=== PATIENT | female | born 1960 | race Caucasian/White ===

== ENCOUNTER 2016-07-16 10:45 | Emergency (ER) | payer OTHER ==
[~2016-07-16] VITALS: Ht 157.5 cm; Wt 62.0 kg
[~2016-07-16 10:45] MED LIST: AMLO-145; DICY10CA60 PO; IBUP-725; ONDA4TAB8 PO
[2016-07-16 10:47] VITALS: Ht 157.5 cm; Wt 62.0 kg
[2016-07-16] MEDS ORDERED: HYDR-906 PO (11:15)
[2016-07-16] MEDS ORDERED: IBUP400T22 PO (11:15)
--- NOTE | 2016-07-16 11:24 | ERA ---
ER Documentation Chief Complaint Date/Time DATE: 07/16/16 TIME: 11:20 Chief Complaint RIGHT SHOULDER PAIN,FELL A MONTH AGO HPI Patient is a 52-year-old female presenting with a complaint of a torn shoulder and current shoulder pain. Administrative Personal Assistant is the Slingbox. Patient had an MRI of her right shoulder 2 days ago was diagnosed with a complete deltoid tear. Patient' s current pain is an 8-9 out of 10 and claims that she is having difficulty sleeping. Pt denies weight loss, fevers, nausea, vomiting, diarrhea, constipation, hyperhidrosis, rigors, fatigue, dyspnea, malaise or depression. ROS All systems reviewed and are negative except as per history of present illness. Medications Home Meds Active Scripts Hydrocodone/Acetaminophen ([place] 5-325 Tablet) 1 Each Tablet, 1 TAB PO Q6H Y for PAIN, #7 TAB Prov:NANCI STODDARD PA-C 07/16/16 Ibuprofen* (Motrin*) 400 Mg Tab, 400 MG PO Q6, #30 TAB Prov:NANCI STODDARD PA-C 07/16/16 Dicyclomine Hcl* (Bentyl*) 10 Mg Capsule, 10 MG PO QID for 3 Days, CAP Prov:JOCELIN MOLINA 05/16/15 Ondansetron Hcl* (Zofran*) 4 Mg Tablet, 4 MG PO Q6H for NAUSEA AND/OR VOMITING, #30 TAB Prov:JOCELIN MOLINA 05/16/15 Reported Medications Ibuprofen (Motrin) 400 Mg Tablet 08/12/12 Amlodipine Besylate* (Amlodipine Besylate*) 5 Mg Tablet 08/12/12 Allergies Allergies: Coded Allergies: Penicillins (Verified Allergy, Mild, RASH, 07/16/16) PMhx/Soc History of Surgery: Yes () Anesthesia Reaction: No Hx Neurological Disorder: No Hx Respiratory Disorders: No Hx Cardiac Disorders: Yes (htn) Hx Psychiatric Problems: No Hx Miscellaneous Medical Probl: No Hx Alcohol Use: No Hx Substance Use: No Hx Tobacco Use: No Smoking Status: Never smoker Physical Exam Vitals Vital Signs Date Time Temp Pulse Resp B/P Pulse Ox O2 Delivery O2 Flow Rate FiO2 07/16/16 10:47 98.5 61 18 117/57 98 Physical Exam Const: Overweight 56-year-old female Head: Atraumatic Eyes: Normal Conjunctiva ENT: Normal External Ears, Nose and Mouth. Neck: Full range of motion..~ No meningismus. Resp: Clear to auscultation bilaterally Cardio: Regular rate and rhythm, no murmurs Abd: Soft, non tender, non distended. Normal bowel sounds Skin: No petechiae or rashes Back: No midline or flank tenderness Ext: No cyanosis, or edema. Positive drop arm sign in the right shoulder. Limited and internal/external abduction abduction ranges of motion secondary to pain and weakness. Patient is neurovascularly intact bilaterally. Neur: Awake and alert Psych: Normal Mood and Affect Procedures/MDM Patient is presenting with a close tear diagnosed by MRI 2 days ago. Patient has not seen the PCP who originally referred her to a specialist. Have told the patient that we do not treat chronic pain here and to follow-up with PCP for further management. We will go ahead and give a short course of [place] and ibuprofen. Patient was told not to take his to medications at the same time but alternate. Patient's physical exam was consistent with a tear of the right deltoid muscle and general limited range of motion in all range of motion secondary to pain. Rest of physical exam was unremarkable. Departure Diagnosis: Primary Impression: Rotator cuff tear Qualified Code: M75.121 - Complete tear of right rotator cuff Condition: Stable Patient Instructions: Rotator Cuff Tear Additional Instructions: Follow-up with PCP who ordered MRI to figure out the next plan of action. If you have any questions regarding medications, ask your pharmacist or us before you leave. If any adverse reactions occur while taking your medications, discontinue the treatment and return to the emergency department immediately. Take your medications as directed, and complete the entire course of treatment. NANCI SOTDDARD PA-C Jul 16, 2016 11:24
== END 2016-07-16 11:29 | disposition home or self-care (01) ==
LOC: FTE 10:45
DX: M75.121 Complete rotator cuff tear or rupture of right shoulder, not specified as traumatic (principal); I10 Essential (primary) hypertension
CPT/HCPCS: 99283

== ENCOUNTER 2016-10-19 10:46 | Emergency (ER) | payer OTHER ==
[~2016-10-19] VITALS: Ht 157.5 cm; Wt 61.0 kg
[~2016-10-19 10:46] MED LIST changes: +HYDR-906 PO; +IBUP400T22 PO
[2016-10-19 10:48] VITALS: Ht 157.5 cm; Wt 61.0 kg
[2016-10-19] MEDS ORDERED: ACETAMINOPHEN 500 MG TAB PO STA (11:33)
--- NOTE | 2016-10-19 13:06 | RADRPT ---
PROCEDURE: CT brain without contrast CLINICAL INDICATION: Headache, left arm numbness TECHNIQUE: CT of the brain without contrast was performed on a multidetector CT scanner, with multi planar reformats. One or more of the following dose reduction techniques were used: Automated expos ure control, adjustment in mA and / or kV according to patient size, use of iterative reconstructive technique. CTDIvol = 45 mGy; DLP = 720 mGy-cm. COMPARISON: CT brain 08/08/2012 FINDINGS: No acute intracranial hemorrhage is identified. No extra-axial fluid collection is seen. There is no mass effect. No midline shift is identified. Ventricles and sulci are within normal limits for size and configuration. The density of the brain is unremarkable. Ortiz-white differentiation is preserved. There has been increase in patchy heterogeneity of the calvarium with areas of decreased attenuation and sclerosis; there may now be mild calvarial thickening. No destructive osseous changes are seen . Mastoid air cells and imaged paranasal sinuses grossly clear. IMPRESSION: 1. No evidence of acute intracranial pathology. 2. Increase in diffuse heterogeneity of the calvarium with lucency and sclerosis, and suggestion of interval mild calvarial thickening. Findings may reflect Paget disease, or possibly sequela of meta bolic disorder. Metastatic disease is not excluded. Correlate clinically. RPTAT: VV .Willie Valdez MD, MD Date Time Electronically viewed and signed by .Willie Valdez MD, on 10/19/2016 13:06 .O/
[2016-10-19 13:29] LABS: ADD SCAN DIFF NO
[2016-10-19 13:32] LABS: BASOPHILS % 0.1 % (0.0-2.0); EOSINOPHILS # 0.2 10^3/ul (0.0-0.5); EOSINOPHILS % 2.4 % (0.0-7.0); HEMATOCRIT 43.8 % (37.0-47.0); HEMOGLOBIN 14.3 g/dl (12.0-16.0); LYMPHOCYTES # 2.3 10^3/ul (0.8-2.9); LYMPHOCYTES % 32.1 % (15.0-51.0); MEAN CORPUSCULAR HEMOGLOBIN 28.3 pg (29.0-33.0); MEAN CORPUSCULAR HGB CONC 32.6 g/dl (32.0-37.0); MEAN CORPUSCULAR VOLUME 86.7 fl (82.0-101.0); MEAN PLATELET VOLUME 9.2 fl (7.4-10.4); MONOCYTE # 0.5 10^3/ul (0.3-0.9); MONOCYTES % 6.7 % (0.0-11.0); NEUTROPHIL # 4.2 10^3/ul (1.6-7.5); NEUTROPHILS % 58.6 % (39.0-77.0); PLATELET COUNT 371 10^3/UL (140-415); RED BLOOD COUNT 5.05 10^6/ul (4.20-5.40); RED CELL DISTRIBUTION WIDTH 12.5 % (11.5-14.5); WHITE BLOOD COUNT 7.2 10^3/ul (4.8-10.8)
[2016-10-19 13:51] LABS: ALBUMIN 4.5 g/dl (3.3-4.9); ALBUMIN/GLOBULIN RATIO 1.04; BILIRUBIN,INDIRECT 0.4 mg/dl (0-1.1); BILIRUBIN,TOTAL 0.4 mg/dl (0.2-1.3); CALCIUM 10.1 mg/dl (8.4-10.2); CREATININE 0.77 mg/dl (0.44-1.00); POTASSIUM 4.5 mmol/L (3.5-5.1); TOTAL PROTEIN 8.8 g/dl (6.1-8.1)
--- NOTE | 2016-10-19 13:53 | RADRPT ---
PROCEDURE: Chest x-ray CLINICAL INDICATION: Chest pain TECHNIQUE: Chest single view COMPARISON: None FINDINGS: The heart is normal in size. The pulmonary vessels are normal in caliber. The lungs are clear. Th e costophrenic angles are sharp. The visualized bony thorax is unremarkable. IMPRESSION: No acute cardiopulmonary disease. RPTAT: HH .Yury Berger MD, Date Time Electronically viewed and signed by .Yury Berger MD, MD on 10/19/2016 13:53 .W/
[2016-10-19] MEDS ORDERED: TRAM50TA2 PO (14:16)
[2016-10-19] MEDS ORDERED: IBUP-1542 PO (14:16)
--- NOTE | 2016-10-19 14:21 | ERD ---
ER Documentation Chief Complaint Date/Time DATE: 10/19/16 TIME: 14:18 Chief Complaint HEADACHE , LT ARM PAIN AND NUMBNESS X 1 DAY HPI This 56-year-old female presents with a 3 day history of left-sided headache, neck pain. The pain in her neck radiates to her left arm. She also has pain in her upper and lower back. She is wondering if it is due to stress at work. She denies any history of trauma, fevers, chest pain, shortness breath, additional symptoms. ROS All systems reviewed and are negative except as per history of present illness. Medications Home Meds Active Scripts Tramadol HCl (Tramadol HCl) 50 Mg Tablet, 50 MG PO Q4 Y for PAIN, #20 TAB Prov:BOO YOON MD 10/19/16 Ibuprofen* (Motrin*) 600 Mg Tab, 600 MG PO Q6, #20 TAB Prov:BOO YOON MD 10/19/16 Hydrocodone/Acetaminophen ([place] 5-325 Tablet) 1 Each Tablet, 1 TAB PO Q6H Y for PAIN, #7 TAB Prov:NANCI STODDARD PA-C 07/16/16 Ibuprofen* (Motrin*) 400 Mg Tab, 400 MG PO Q6, #30 TAB Prov:NANCI STODDARD PA-C 07/16/16 Dicyclomine Hcl* (Bentyl*) 10 Mg Capsule, 10 MG PO QID for 3 Days, CAP Prov:JOCELIN MOLINA 05/16/15 Ondansetron Hcl* (Zofran*) 4 Mg Tablet, 4 MG PO Q6H for NAUSEA AND/OR VOMITING, #30 TAB Prov:JOCELIN MOLINA 05/16/15 Reported Medications Ibuprofen (Motrin) 400 Mg Tablet 08/12/12 Amlodipine Besylate* (Amlodipine Besylate*) 5 Mg Tablet 08/12/12 Allergies Allergies: Coded Allergies: Penicillins (Verified Allergy, Mild, RASH, 10/19/16) PMhx/Soc History of Surgery: Yes () Anesthesia Reaction: No Hx Neurological Disorder: No Hx Respiratory Disorders: No Hx Cardiac Disorders: Yes (htn) Hx Psychiatric Problems: No Hx Miscellaneous Medical Probl: No Hx Alcohol Use: No Hx Substance Use: No Hx Tobacco Use: No Smoking Status: Never smoker Physical Exam Vitals Vital Signs Date Time Temp Pulse Resp B/P Pulse Ox O2 Delivery O2 Flow Rate FiO2 10/19/16 10:48 99.0 75 16 138/60 98 Physical Exam Const: [] Alert, [id number] per Head: Atraumatic. Mildly reproducible headache on the left zoroastrian. No pulsatile masses. Eyes: Normal Conjunctiva ENT: Normal External Ears, Nose and Mouth. Neck: Full range of motion..~ No meningismus.. Minimal tenderness in the cervical paraspinous muscles. Resp: Clear to auscultation bilaterally Cardio: Regular rate and rhythm, no murmurs Abd: Soft, non tender, non distended. Normal bowel sounds Skin: No petechiae or rashes Back: No midline or flank tenderness Ext: No cyanosis, or edema Neur: Awake and alert Psych: Normal Mood and Affect Result Diagram: 10/19/16 1319 10/19/16 1319 Results 24 hrs Laboratory Tests Test 10/19/16 13:19 White Blood Count 7.210^3/ul Red Blood Count 5.0510^6/ul Hemoglobin 14.3g/dl Hematocrit 43.8% Mean Corpuscular Volume 86.7fl Mean Corpuscular Hemoglobin 28.3pg Mean Corpuscular Hemoglobin Concent 32.6g/dl Red Cell Distribution Width 12.5% Platelet Count 76183^3/UL Mean Platelet Volume 9.2fl Neutrophils % 58.6% Lymphocytes % 32.1% Monocytes % 6.7% Eosinophils % 2.4% Basophils % 0.1% Nucleated Red Blood Cells % 0.0/100WBC Neutrophils # 4.210^3/ul Lymphocytes # 2.310^3/ul Monocytes # 0.510^3/ul Eosinophils # 0.210^3/ul Basophils # 0.010^3/ul Nucleated Red Blood Cells # 0.010^3/ul Sodium Level 143mmol/L Potassium Level 4.5mmol/L Chloride Level 103mmol/L Carbon Dioxide Level 28mmol/L Anion Gap 17 Blood Urea Nitrogen 21mg/dl Creatinine 0.77mg/dl Glucose Level 94mg/dl Calcium Level 10.1mg/dl Total Bilirubin 0.4mg/dl Direct Bilirubin 0.00mg/dl Indirect Bilirubin 0.4mg/dl Aspartate Amino Transf (AST/SGOT) 36IU/L Alanine Aminotransferase (ALT/SGPT) 43IU/L Alkaline Phosphatase 210IU/L Total Protein 8.8g/dl Albumin 4.5g/dl Globulin 4.30g/dl Albumin/Globulin Ratio 1.04 Current Medications Medications (Trade) Dose Ordered Sig/Emma Route PRN Reason Start Time Stop Time Status Last Admin Dose Admin Acetaminophen (Tylenol Tab) 500 mg ONCE STAT PO 10/19/16 11:33 10/19/16 11:34 DC 10/19/16 12:22 Procedures/MDM CT brain shows normal brain although there are some areas of sclerosis in the calvarium. Differential includes metastatic disease versus metabolic disorder. Chest X-ray 1V Interpreted by me: Soft Tissue: No acute abnormalities Bones: No acute abnormalities Mediastinum/Cardiac Silhouette/Lungs: [No acute abnormalities]. Impression- normal 1 view chest x-ray CBC is normal. CMP shows slightly elevated alkaline phosphatase. Patient presents with headache, neck pain back pain suggestive of muscular skeletal pain , tension headache, possibly mild cervical radicular symptoms. There is some areas of sclerosis on her CT of her skull and alkaline phosphatase suggest some unspecified metabolic disorder possibly. She is advised to follow-up with primary doctor for further evaluation management. Signs or symptoms do not suggest bleeding, mass-effect, tumor, meningitis, bacterial infection, neurologic deficit. Patient will be treated with tramadol and ibuprofen and primary care follow-up. The patient was stable with no new complaints during the ER course. Clinically, there is no current evidence to suggest meningitis, sepsis, acute abdomen, pneumonia, acute coronary syndrome, pulmonary embolism, or any other emergent condition appearing to require further evaluation or hospitalization. The patient should certainly return for any new or worsening symptoms per the aftercare instructions. They should otherwise follow-up with her primary care doctor for reevaluation this week. Departure Diagnosis: Primary Impression: Headache Headache type: unspecified Headache chronicity pattern: unspecified pattern Intractability: not intractable Qualified Code: R51 - Nonintractable headache, unspecified chronicity pattern, unspecified headache type Condition: Stable Patient Instructions: Headache, Unspecified Additional Instructions: cerebro normal. los huesos poquito abnormales. . Cheque otro vez con hartman doctor primario en el proximo [place] or regresa para mas o nueva simptomas. BOO YOON MD Oct 19, 2016 14:20
== END 2016-10-19 14:47 | disposition home or self-care (01) ==
LOC: FTE 10:46
DX: R51 Headache (principal); I10 Essential (primary) hypertension
CPT/HCPCS: 70450; 71010; 80053; 85025; Z7502; Z7610

== ENCOUNTER 2016-12-11 09:12 | Inpatient (IN) | payer OTHER ==
[~2016-12-11] VITALS: Ht 154.9 cm; Wt 62.0 kg
[~2016-12-11 09:12] MED LIST changes: +IBUP-1542 PO; +TRAM50TA2 PO
[2016-12-11] MEDS ORDERED: ONDANSETRON 4 MG INJ IV ONE (09:30)
[2016-12-11] MEDS ORDERED: morphine 2 MG INJ IV ONE (09:30)
[2016-12-11 09:58] LABS: BASOPHILS % 0.2 % (0.0-2.0); EOSINOPHILS # 0.1 10^3/ul (0.0-0.5); EOSINOPHILS % 2.7 % (0.0-7.0); HEMATOCRIT 42.8 % (37.0-47.0); LYMPHOCYTES % 37.3 % (15.0-51.0); MEAN CORPUSCULAR HEMOGLOBIN 27.8 pg (29.0-33.0); MEAN CORPUSCULAR HGB CONC 32.7 g/dl (32.0-37.0); MEAN CORPUSCULAR VOLUME 85.1 fl (82.0-101.0); MEAN PLATELET VOLUME 9.7 fl (7.4-10.4); MONOCYTE # 0.3 10^3/ul (0.3-0.9); MONOCYTES % 6.1 % (0.0-11.0); NEUTROPHILS % 52.6 % (39.0-77.0); PLATELET COUNT 302 10^3/UL (140-415); RED BLOOD COUNT 5.03 10^6/ul (4.20-5.40); RED CELL DISTRIBUTION WIDTH 13.1 % (11.5-14.5); WHITE BLOOD COUNT 5.3 10^3/ul (4.8-10.8)
[2016-12-11 10:10] LABS: CALCIUM 9.7 mg/dl (8.4-10.2); CREATININE 0.72 mg/dl (0.44-1.00); POTASSIUM 4.1 mmol/L (3.5-5.1)
--- NOTE | 2016-12-11 10:19 | RADRPT ---
PROCEDURE: CT Brain without contrast. CLINICAL INDICATION: Trauma TECHNIQUE: A CT of the brain was performed on a [employer] 64-slice CT scanner utilizing axial imaging from the skull base through the vertex without IV contrast. Multiplanar reformatted images were made. Images were reviewed on a PACS workstation. The CTDIvol is 44.6 mGy and the DLP is 630 mGycm. One or more of the following dose reduction techniques were used: Automated exposure control. Adjustment of the mA and/or kV according to patient size. Use of iterative reconstruction technique. COMPARISON: October 19, 2016 FINDINGS: There is no intracranial hemorrhage, mass effect, or midline shift. No extra-axial fluid collection is seen. The ventricles and sulci are normal in size and configuration. The density of the brain is normal, and the leal white matter differentiation appears well-preserved. As also seen on a prior examination, there is a heterogeneous increased sclerosis diffusely of the c alvarium. IMPRESSION: 1. No evidence of acute intracranial pathology. 2. As also seen on a prior exam, there is heterogeneous increased sclerosis diffusely of the calvar ium. Differential considerations continue to include pad disc disease though metastatic disease is n ot excluded. Consider radiographic bone survey when clinically appropriate for further evaluation. Physician Ambreen Date Time Electronically viewed and signed by Physician Ambreen on 12/11/2016 10:18 ML/
--- NOTE | 2016-12-11 10:26 | RADRPT ---
PROCEDURE: XR Chest. CLINICAL INDICATION: Chest pain following trauma TECHNIQUE: AP Portable chest. COMPARISON: 10/19/2016 chest X ray FINDINGS: The soft tissues and bones are remarkable for increased density noted within the left axilla which m ay represent calcifications or artifact. Thoracic spondylosis is present with bilateral acromioclavi cular osteoarthropathy. No focal infiltrates, masses, or effusions are noted. The mediastinum and heart are normal. No pneumothorax is present. IMPRESSION: 1. No radiographic evidence for acute cardiopulmonary disease 2. Thoracic spondylosis and mild degenerative changes of the bilateral acromioclavicular joints. RPTAT: HDC .Thania Escobedo MD, Date Time Electronically viewed and signed by .Thania Escobedo MD, MD on 12/11/2016 10:26 .C/
--- NOTE | 2016-12-11 10:26 | RADRPT ---
PROCEDURE: CT scan of the cervical spine without intravenous contrast. CLINICAL INDICATION: Neck pain TECHNIQUE: Routine CT scan of the cervical spine was performed without intravenous contrast on a h igh-resolution multi detector scanner. Vertebral level counting reference is made to the craniocervi any junction. Images and image data are available for procedural planning and localization purposes. One or more of the following dose reduction techniques were used: Automated exposure control; Adjus tment of the mA and/or kV according to patient size; Use of iterative reconstruction technique. CTDI = 22 mGy. DLP = 494 mGy-cm. COMPARISON: None. FINDINGS: Craniocervical junction: Within normal limits. Alignment: There is straightening of the cervical lordosis. Cervical vertebral bodies: Height is maintained. Mild degenerative endplate changes are present C6- C7. Evaluation of the individual levels demonstrates: C2-C3: Normal disk morphology without protrusion. Normal appearance of the facets. Central canal an d neural foramen are patent. C3-C4: Normal disk morphology without protrusion. Normal appearance of the facets. Central canal an d neural foramen are patent. C4-C5: Normal disk morphology without protrusion. Normal appearance of the facets. Central canal an d neural foramen are patent. C5-C6: Mild loss of disc height with 1 mm broad-based dorsal disc protrusion. Normal appearance of t he facets. Central canal and neural foramen are patent. C6-C7: Moderate loss of disc height with 1.5 mm broad-based dorsal disc protrusion. Normal appearanc e of the facets. Central canal and neural foramen are patent. C7-T1: Normal disk morphology without protrusion. Normal appearance of the facets. Central canal an d neural foramen are patent. Paraspinous musculature: Within normal limits. Visualized cervical soft tissues: Nodular opacities in the visualized lung apices likely representi ng postinflammatory scarring/fibrosis. IMPRESSION: No evidence of cervical vertebral body fracture, subluxation, or prevertebral soft tissue swelling. Minimal degenerative changes of the lower cervical spine without central canal or neural foraminal s tenosis. RPTAT: AADD .Mamadou Morel MD, MD Date Time Electronically viewed and signed by .Mamadou Morel MD, on 12/11/2016 10:26 .Jareth
--- NOTE | 2016-12-11 10:37 | RADRPT ---
PROCEDURE: CT Pelvis without Contrast CLINICAL INDICATION: Fall TECHNIQUE: Transaxial images were obtained through the pelvis on a multi-slice scanner without the intravenous contrast administration. no oral contrast had previously been given. Sagittal and bita nal re-formations were subsequently reconstructed. One or more of the following dose reduction techniques were used: - Automated exposure control. - Adjustment of the mA and/or kV according to patient size. - Use of iterative reconstruction technique. Radiation dose: CTDIvol = 7.82 mGy; DLP = 240.38 mGy-cm. COMPARISON: Comparison previous CT scan of the abdomen and pelvis done 05/16/2015 FINDINGS: Osseous structures: Appear intact with no fracture or destructive process identified. Hip joints: Mild degenerative changes seen about each hip. No joint effusion is identified. Sacroiliac joints: Appear unremarkable with no significant sclerosis or erosion identified. Extraperitoneal soft tissues: Appear unremarkable. Bladder: The bladder appears unremarkable. Reproductive organs: The uterus deviates slightly to the left of midline. Multiple phleboliths are s een in the pelvis but there is no adnexal mass. Visualized bowel: Appears unremarkable. Peritoneum: No free intraperitoneal fluid or air is identified. Vessels: Normal in caliber with no aneurysmal dilatation. Lymph nodes: No pathologically enlarged nodes are identified. IMPRESSION: 1. No fracture or dislocation is identified. 2. Very mild degenerative changes are seen about the hips. 3. Phleboliths are seen in the pelvis. Physician Maggie Date Time Electronically viewed and signed by Physician Maggie on 12/11/2016 10:37 /
--- NOTE | 2016-12-11 10:44 | RADRPT ---
PROCEDURE: CT L-Spine. CLINICAL INDICATION: Pain following trauma TECHNIQUE: A CT of the lumbar spine was performed on a [employer] 64-slice CT scanner utilizing high-resolution thin section axial images from the thoracic lumbar junction through the lumbar sacr al junction. Sagittal and coronal and multiplanar reformatted images were made. The CTDIvol is 29.2 7 mGy and the DLP is 908 mGycm. One of the following 3 does reduction techniques were used during this CT examination: 1) Automated exposure control 2) Adjustment of the mA +/- kV according to patient size or 3) Use of iterative reconstruction technique COMPARISON: CT abdomen pelvis dated 05/16/2015 without prior dedicated lumbar spine imaging FINDINGS: The visualized spine alignment demonstrates normal lumbar lordosis. An acute, L1 vertebral body burs t fracture is present with approximately 40% vertebral body height loss. Involvement of the posterio r L1 vertebral body cortex is noted with retropulsion into the spinal canal of 3 mm. This results in a mild central canal stenosis. The remainder the vertebral body heights are normal. The interverteb ral disc spaces demonstrate mild disc space height loss at the L5-S1 level. The posterior elements a re intact and well aligned. The bilateral paravertebral soft tissues imaged are normal. The imaged p ortions of the bilateral sacroiliac joints and the pelvis are normal. The specific axial levels are as follows: T10-11: The intervertebral disc is normal. The central canal, bilateral subarticular recesses and n eural foramen are patent. T11-12: The intervertebral discs is normal. The central canal, subarticular recess and neural ciarra en are patent. T12-L1: The intervertebral discs is normal. The central canal, subarticular recess and neural ciarra en are patent. A mild 3 mm annular bulge is present with mild ventral impression on the thecal sac. Again noted is the acute, burst fracture at L1 with approximately 3-4 mm retropulsion of the posteri or fragment. AP canal dimension at the mid vertebral level is 9 mm. This results in a mild central c anal stenosis and bilateral subarticular recess stenosis. L1-2: At the L1-2 this level the intervertebral disc height is normal. A mild 3 mm broad-based bulge is present. The central canal , bilateral subarticular recesses, and bilateral neural foramen demon strate mild stenosis. L2-3: The intervertebral disc is normal in height. At 3 mm mild broad-based bulge is present. Bilate ral facet arthropathy and ligamentum hypertrophy is present. AP canal dimension is 10 mm. This resul ts in mild central canal stenosis without subarticular recess or neural foraminal stenosis. L3-4: The intervertebral discs is normal. A mild 3 mm broad-based bulge is present. AP canal dimensi on is 9.9 mm. Mild bilateral facet arthropathy and ligamentum hypertrophy is present. Above findings contribute to mild central canal stenosis, bilateral subarticular recess stenosis and mild bilatera l neural foraminal stenosis. L4-5: The intervertebral disc is normal height. A 4 mm broad-based bulge is present. Bilateral facet arthropathy and ligamentum hypertrophy is present. AP canal dimension is 7.7 mm. This results in a moderate central canal stenosis, bilateral subarticular recess stenosis and mild bilateral neural fo raminal stenosis. L5-1: Mild disc space height loss is noted with the appearance of transitional anatomy at this level . The central canal, bilateral subarticular recesses and neural foramen are patent. Mild bilateral f acet arthropathy is present. IMPRESSION: 1. Acute L1 vertebral body burst fracture with approximately 40% vertebral body height loss and a m ild retropulsion into the spinal canal resulting in mild central canal stenosis. 2. Transitional anatomy with mild disc space height loss at L5-S1. 3. Multilevel broad-based bulges at the L1-2 through L4-5 levels with moderate central canal stenos is at L4-5 and mild stenosis at L1-2 through L3-4 levels. 4. Multilevel neural foraminal stenosis at the L1-2, L3-4 and L4-5 levels. 5. Multilevel facet and ligamentum hypertrophy as indicated above. A call report was made to Juan C Young at 12/11/2016 10:35:17 AM following the completion of th e examination by the undersigned. RPTAT: HDC .Thania Escobedo MD, Date Time Electronically viewed and signed by .Thania Escobedo MD, on 12/11/2016 10:44 .C/
[2016-12-11] MEDS ORDERED: LOSA25TA5 PO (10:52)
[2016-12-11] MEDS ORDERED: AMLO5TAB4 PO (10:52)
[2016-12-11] MEDS ORDERED: ASPI81TA3 PO (10:52)
--- NOTE | 2016-12-11 11:39 | RADRPT ---
PROCEDURE: Right wrist series CLINICAL INDICATION: Pain status post trauma TECHNIQUE: AP , lateral, oblique and ulnar deviation views of the right wrist COMPARISON: None available FINDINGS: Subtle deformity and lucency is noted at the waist of the right scaphoid. Recommend additional imagi ng such as CT or MRI to further evaluate for a nondisplaced fracture. Mild soft tissue swelling is p resent along the right radiocarpal articulation. No radiodense foreign bodies are present. Normal mi neralization and joint spaces are present. IMPRESSION: 1. Subtle lucency and deformity of the waist of the right scaphoid. Recommend additional imaging hartman ch as CT or MR to further evaluate for a closed, nondisplaced fracture. 2. Mild soft tissue swelling along the right radiocarpal articulation. RPTAT: HDC .Thania Escobedo MD, Date Time Electronically viewed and signed by .Thania Escobedo MD, on 12/11/2016 11:38 .C/
--- NOTE | 2016-12-11 11:58 | RADRPT ---
PROCEDURE: CT thoracic spine CLINICAL INDICATION: Pain status post trauma TECHNIQUE: A CT of the thoracic spine was performed on a GE 64-slice CT scanner utilizing high-res olution axial imaging from the cervical thoracic junction through the thoracolumbar junction. Sagit michelle, coronal, and multiplanar reformatted images were made. The CTDIvol is 14.69 mGy and the DLP is 501.11 mGycm. One of the following 3 does reduction techniques were used during this CT examination: 1) Automated exposure control 2) Adjustment of the mA +/- kV according to patient size or 3) Use of iterative reconstruction technique COMPARISON: Lumbar spine CT on same date FINDINGS: Visualized spine alignment demonstrates mild thoracic kyphosis. Again noted is the L1 vertebral body burst fracture with approximately 40% vertebral body height loss and mild retropulsion into the spi nal canal. The appearance of a chronic compression fracture deformity of C7 is noted with approximat carmen 30% vertebral body height loss. No retropulsion into the spinal canal is noted. The remainder of the vertebral body heights are normal. Degenerative spondylosis/enthesopathy is present throughout the thoracic spine. Sclerotic densities are noted in the vertebral bodies at the T5, left T8, left T 9, and right T11 and T12 vertebral bodies. Consider MR to further evaluate as sclerotic metastasis o r other osteoblastic etiologies are considerations. The visualized posterior elements are intact and well aligned. The bilateral paravertebral soft tiss ues demonstrate subsegmental bibasilar discoid atelectasis. Mild vascular calcifications are present . At all axial levels imaged, no focal disc extrusions, central canal, subarticular recess or neural foraminal stenosis is present within the thoracic spine. At the L1-2 level, again noted is mild ret ropulsion of the spinal canal with mild central canal stenosis, bilateral subarticular recess stenos is and mild bilateral neural foraminal stenosis. IMPRESSION: 1. Mild thoracic kyphosis without evidence for acute thoracic fractures. 2. L1 vertebral body burst fracture with mild retropulsion into the spinal canal and associated mil d stenosis as indicated. 3. Chronic appearing compression fracture of the C7 vertebral body with approximately 30% vertebral body height loss and no retropulsion of the spinal canal. 4. Multiple sclerotic lesions noted diffusely in the thoracic spine and recommend MRI to further ev aluate for underlying pathology or potential osteoblastic metastasis or other etiologies. RPTAT: HDC .Thania Escobedo MD, MD Date Time Electronically viewed and signed by .Thania Escobedo MD, MD on 12/11/2016 11:57 .C/
[2016-12-11 12:25] LABS: ADD UMIC YES; UR ASCORBIC ACID NEGATIVE (NEGATIVE); UR BILIRUBIN (Dip) NEGATIVE (NEGATIVE); UR BLOOD (Dip) 2+ mg/dL (NEGATIVE); UR CLARITY CLEAR (CLEAR); UR COLOR YELLOW (YELLOW); UR GLUCOSE (Dip) NEGATIVE (NEGATIVE); UR KETONES (Dip) NEGATIVE (NEGATIVE); UR LEUKOCYTE ESTERASE (Dip) NEGATIVE Leu/ul (NEGATIVE); UR NITRITE (Dip) NEGATIVE (NEGATIVE); UR RBC 5 /HPF (0-5); UR TOTAL PROTEIN (Dip) NEGATIVE (NEGATIVE); UR UROBILINOGEN (Dip) NEGATIVE (NEGATIVE)
[2016-12-11] MEDS ORDERED: morphine 4 MG/ML VIAL IV STA (13:13)
[2016-12-11] MEDS ORDERED: ACETAMINOPHEN 325 MG TAB PO PRN ×2 (13:30→18:30)
[2016-12-11] MEDS ORDERED: ONDANSETRON 4 MG INJ IV PRN (13:30)
--- NOTE | 2016-12-11 14:04 | ERA ---
ER Documentation Chief Complaint Date/Time DATE: 12/11/16 TIME: 09:30 Chief Complaint BIB [facility] FOR BACK PAIN FELL DOWN FLIGHT OF STEPS. AMBULATORY. CSPINE BY EMS HPI 56-year-old female history of hypertension presents to the ED via rescue ambulance complaining of severe low back pain after a fall down stairs just prior to arrival. Patient initially said she slipped on her back down the stairs but then thinks she fell forward head over heels. Complains of mild headache and neck pain and was placed in cervical spine immobilization at the scene. No chest pain or abdominal pain. Denies shortness of breath or palpitations. Severe, sharp, lower back pain exacerbated by any movement. No radicular symptoms, weakness or numbness. Mild right wrist pain. ROS All systems reviewed and are negative except as per history of present illness. Medications Home Meds Reported Medications Losartan Potassium* (Losartan Potassium*) 25 Mg Tablet, 25 MG PO DAILY, TAB 12/11/16 Aspirin* (Aspirin* Chew) 81 Mg Tab.chew, 81 MG PO DAILY, TAB.CHEW 12/11/16 Amlodipine Besylate* (Norvasc*) 5 Mg Tablet, 5 MG PO DAILY, TAB 12/11/16 Discontinued Reported Medications Ibuprofen (Motrin) 400 Mg Tablet 08/12/12 Amlodipine Besylate* (Amlodipine Besylate*) 5 Mg Tablet 08/12/12 Discontinued Scripts Tramadol HCl (Tramadol HCl) 50 Mg Tablet, 50 MG PO Q4 Y for PAIN, #20 TAB Prov:BOO YOON MD 10/19/16 Ibuprofen* (Motrin*) 600 Mg Tab, 600 MG PO Q6, #20 TAB Prov:BOO YOON MD 10/19/16 Hydrocodone/Acetaminophen (Moran 5-325 Tablet) 1 Each Tablet, 1 TAB PO Q6H Y for PAIN, #7 TAB Prov:NANCI STODDARD PA-C 07/16/16 Ibuprofen* (Motrin*) 400 Mg Tab, 400 MG PO Q6, #30 TAB Prov:NANCI STODDARD PA-C 07/16/16 Dicyclomine Hcl* (Bentyl*) 10 Mg Capsule, 10 MG PO QID for 3 Days, CAP Prov:JOCELIN MOLINA 05/16/15 Ondansetron Hcl* (Zofran*) 4 Mg Tablet, 4 MG PO Q6H for NAUSEA AND/OR VOMITING, #30 TAB Prov:JOCELIN MOLINA 05/16/15 Allergies Allergies: Coded Allergies: Penicillins (Verified Allergy, Mild, RASH, 12/11/16) PMhx/Soc Reviewed in chart. As per HPI. History of Surgery: Yes () Anesthesia Reaction: No Hx Neurological Disorder: No Hx Respiratory Disorders: No Hx Cardiac Disorders: Yes (htn) Hx Psychiatric Problems: No Hx Miscellaneous Medical Probl: No Hx Alcohol Use: No Hx Substance Use: No Hx Tobacco Use: No Smoking Status: Never smoker FmHx Not relevant to presenting complaint. Aunts with aunt: Pancreatic CA. Physical Exam Vitals Vital Signs Date Time Temp Pulse Resp B/P Pulse Ox O2 Delivery O2 Flow Rate FiO2 12/11/16 11:18 59 18 122/64 12/11/16 09:14 98.1 56 18 148/77 100 Physical Exam Const: Alert and oriented in severe distress due to pain Head: Atraumatic Eyes: Normal Conjunctiva ENT: Normal External Ears, Nose and Mouth. Neck: Cervical collar in place. Removed and there is mild posterior tenderness. No midline bony tenderness or paraspinal muscle spasm Resp: Clear to auscultation bilaterally. No rib tenderness or crepitus. Cardio: Regular rate and rhythm, no murmurs Abd: Soft, non tender, non distended. Normal bowel sounds Skin: No petechiae or rashes Back: Upper lumbar midline tenderness with paraspinal muscle spasm. No thoracic spinal tenderness. Ext: No cyanosis, or edema. Pulses 4+ in all extremities. Neur: Awake and alert. Motor and sensory equal bilaterally in all 4 extremities. Psych: Anxious but not depressed. Result Diagram: 12/11/1693912/11/16939 Results 24 hrs Laboratory Tests Test 12/11/16 09:40 12/11/16 12:00 White Blood Count 5.310^3/ul Red Blood Count 5.0310^6/ul Hemoglobin 14.0g/dl Hematocrit 42.8% Mean Corpuscular Volume 85.1fl Mean Corpuscular Hemoglobin 27.8pg Mean Corpuscular Hemoglobin Concent 32.7g/dl Red Cell Distribution Width 13.1% Platelet Count 42207^3/UL Mean Platelet Volume 9.7fl Neutrophils % 52.6% Lymphocytes % 37.3% Monocytes % 6.1% Eosinophils % 2.7% Basophils % 0.2% Nucleated Red Blood Cells % 0.0/100WBC Neutrophils # (Manual) 2.810^3/ul Lymphocytes # 2.010^3/ul Monocytes # 0.310^3/ul Eosinophils # 0.110^3/ul Basophils # 0.010^3/ul Nucleated Red Blood Cells # 0.010^3/ul Sodium Level 142mmol/L Potassium Level 4.1mmol/L Chloride Level 105mmol/L Carbon Dioxide Level 29mmol/L Anion Gap 12 Blood Urea Nitrogen 14mg/dl Creatinine 0.72mg/dl Glucose Level 103mg/dl Calcium Level 9.7mg/dl Urine Color YELLOW Urine Clarity CLEAR Urine pH 8.0 Urine Specific Hudson 1.010 Urine Ketones NEGATIVEmg/dL Urine Nitrite NEGATIVEmg/dL Urine Bilirubin NEGATIVEmg/dL Urine Urobilinogen NEGATIVEmg/dL Urine Leukocyte Esterase NEGATIVELeu/ul Urine Microscopic RBC 5/HPF Urine Microscopic WBC 1/HPF Urine Hemoglobin 2+mg/dL Urine Glucose NEGATIVEmg/dL Urine Total Protein NEGATIVEmg/dl Current Medications Medications (Trade) Dose Ordered Sig/Emma Route PRN Reason Start Time Stop Time Status Last Admin Dose Admin Morphine Sulfate (morphine) 4 mg ONCE ONCE IV 12/11/16 09:30 12/11/16 09:34 DC 12/11/16 09:41 Ondansetron HCl (Zofran Inj) 4 mg ONCE ONCE IV 12/11/16 09:30 12/11/16 09:34 DC 12/11/16 09:40 Morphine Sulfate (morphine) 4 mg ONCE STAT IV 12/11/16 13:13 12/11/16 13:15 DC 12/11/16 13:18 Procedures/MDM DOCUMENTS REVIEWED: ED nurse[, EMS, adjunct faculty for medical terminology care, Prior ED, Prior records, Dialysis, Clinic notes, Physician referral] MEDICAL DECISION MAKIN-year-old female history of hypertension presents to the ED via rescue ambulance complaining of severe low back pain after a fall down stairs just prior to arrival. Head injury below no soft consciousness and CT of the brain is unremarkable for traumatic injury. No neurologic deficit. No cervical spine fracture. CT of the lumbar spine reveals an L1 burst fracture. Neurosurgery consulted and MRI is ordered. No signs of intrathoracic or intra-abdominal injury. Morphine 4mg IV X 2. Patient be admitted to telemetry for further evaluation and management. Counseled patient and family regarding diagnosis, diagnostic results and plan for admission. CALLS/CONSULTS: Time 12:50, Dr. Pappas, Recommends MRI of the spine and admission. CALLS/CONSULTS: Time: 13:00, Dr Elizondo PATIENT CARE TRANSITIONED: Time: 13:00, Dr. Elizondo. CRITICAL CARE TIME: Due to the high probability of sudden clinically significant neurologic deterioration, this patient with Unstable, L1 burst fracture required multiple, frequent reevaluations of vital sign and neurologic status. Additional critical care time was spent in obtaining supplemental history from family and EMS, consultation with Neurosurgery and arranging for ongoing care with the admitting physician. TOTAL CRITICAL CARE TIME: 40 minutes not including other separately reportable procedures. Departure Diagnosis: Primary Impression: Fall at home Qualified Code: W19.XXXA - Fall in home, initial encounter Additional Impressions: Severe low back pain Unstable burst fracture of first lumbar vertebra Qualified Code: S32.012A - Closed unstable burst fracture of first lumbar vertebra, initial encounter Head injury, acute, without loss of consciousness Qualified Code: S09.90XA - Acute head injury without loss of consciousness, initial encounter Condition: Serious ADELE RAMOS MD Dec 11, 2016 14:04 TOTAL CRITICAL CARE TIME: 40 minutes not including other separately reportable procedures. Departure Diagnosis: Primary Impression: Fall at home Qualified Code: W19.XXXA - Fall in home, initial encounter Additional Impressions: Severe low back pain Unstable burst fracture of first lumbar vertebra Qualified Code: S32.012A - Closed unstable burst fracture of first lumbar vertebra, initial encounter Head injury, acute, without loss of consciousness Qualified Code: S09.90XA - Acute head injury without loss of consciousness, initial encounter Condition: ADELE Morejon MD Dec 11, 2016 14:04
--- NOTE | 2016-12-11 14:26 | RADRPT ---
PROCEDURE: MRI thoracic spine without contrast CLINICAL INDICATION: Follow up L1 burst fracture TECHNIQUE: An MRI of the thoracic spine was performed on a hi-definition high-resolution 3.0 Julia MR scanner utilizing the following sequences: Sagittal and axial T1 weighted, sagittal and axial T2 weighted, sagittal T2 fat saturation, and sagittal STIR. COMPARISON: CT thoracic spine 12/11/2016 FINDINGS: There is a normal kyphosis of the thoracic spine. Again noted is the acute L1 vertebral body burst f racture with approximate height loss of 40% and mild retropulsion into the spinal canal. Associated mild central canal stenosis is present at this level with approximately 4 mm of retro pulsion. The s clerotic densities previously described on CT are hypointense on T1, T2, T2 fat saturation and T2 ST IR sequences and represent nonspecific sclerotic foci. Chronic appearing C7 vertebral body compressi on fracture is again noted with approximately 30% vertebral body height loss. The remainder of the v ertebral bodies are normal in height and signal. The visualized posterior elements are intact and we ll aligned. The visualized thoracic cord is normal with a normal conus termination at T12-L1. The i ntervertebral discs are all normal in appearance with no significant disk bulge or protrusion. The central canal, subarticular recess and neural foramen are patent at all levels with the exception of mild central canal, subarticular recess and neural foraminal stenosis at L1-2. The paraspinal so ft tissues are normal. IMPRESSION: 1. Acute L1 vertebral body burst fracture with approximately 40% vertebral body height loss, mild r etropulsion of the spinal canal resulting in mild central canal stenosis. 2. No evidence for acute thoracic vertebral body compression fractures. 3. Chronic C7 vertebral body compression fracture with approximately 30% vertebral body height loss . 4. Previously-described sclerotic foci in the T5, T8, T9-T11 and T12 vertebral bodies are hypointen se on multiple sequences and represent nonspecific sclerotic foci. 5. No evidence for cord compression. RPTAT: HDC .Thania Escobedo MD, Date Time Electronically viewed and signed by .Thania Escobedo MD, on 12/11/2016 14:26 .C/
--- NOTE | 2016-12-11 14:32 | RADRPT ---
PROCEDURE: MRI lumbar spine without contrast. CLINICAL INDICATION: Back pain. TECHNIQUE: Routine MRI of the lumbar spine performed without intravenous contrast. Vertebral level counting reference is made to the lumbosacral junction with the last intervertebral disk spaces herman ng labeled as L5/S1. Images and image data are available for procedural planning and localization pu rposes. COMPARISON: CT lumbar spine 12/11/2016 FINDINGS: Alignment: There is preservation of the lumbar lordosis . Vertebrae: Acute burst fracture of the L1 vertebral body is present with 40% loss vertebral body he ight with 2 mm retropulsion of the superior portion of the dorsal wall. This results in minimal cent ral canal stenosis with AP diameter of the thecal sac measuring 10 mm. No evidence of epidural hemat gt. Vertebral body signal intensity throughout the remainder of the lumbar spine is otherwise withi n normal limits. A small hemangioma noted at the L3 level. No significant endplate signal changes ar e seen. Discs: Disc hydration is maintained throughout the lumbar spine. Small circumferential dorsal annul ar fissure/tear present L4-L5. Spinal cord: The conus medullaris is visible at the L1 level, and is normal in appearance. Examination of the individual levels demonstrates: L1-L2: Normal configuration of the disk without significant protrusion. Facets appear normal bilat erally without ligamentum hypertrophy or buckling. Central canal, lateral recesses, and neural for amen are patent. L2-L3: Normal configuration of the disk without significant protrusion. Facets appear normal bilat erally without ligamentum hypertrophy or buckling. Central canal, lateral recesses, and neural for amen are patent. L3-L4: Mild loss of disc height with 1 mm focal bilateral foraminal disc protrusions. Facets appear normal bilaterally without ligamentum hypertrophy or buckling. Central canal, lateral recesses, and neural foramen are patent. L4-L5: Minimal loss of disc height with asymmetric diffuse disc bulge measuring 1 mm centrally and 2 mm in the bilateral foraminal regions. Minimal bilateral facet arthropathy with mild ligamentum hy pertrophy. Central canal, lateral recesses, and neural foramen are patent. L5-S1: Developmentally mildly small disc without focal protrusion. Facets appear normal bilaterally without ligamentum hypertrophy or buckling. Central canal is mildly developmentally small in calibe r with AP diameter of the thecal sac measuring 7.2 mm. Lateral recesses are patent. Both neural fora men are patent. Paraspinous musculature: Normal signal characteristics without evidence of edema. Visualized abdomen: Within normal limits. IMPRESSION: Acute burst fracture of the L1 vertebral body is present with 40% loss vertebral body height with 2 mm retropulsion of the superior portion of the dorsal wall. This results in minimal central canal st enosis with AP diameter of the thecal sac measuring 10 mm. No evidence of epidural hematoma. Elsewhere mild degenerative changes of the lumbar spine without central canal or neural foraminal st enosis. RPTAT: AADD .Mamadou oMrel MD, MD Date Time Electronically viewed and signed by .Mamadou Morel MD, MD on 12/11/2016 14:32 .B/
--- NOTE | 2016-12-11 15:18 | RADRPT ---
PROCEDURE: MRI Brain without and with contrast. CLINICAL INDICATION: Sclerotic skull lesions. TECHNIQUE: An MRI of the brain was performed utilizing the following sequences: Sagittal T1-weigh aggie, axial T2-weighted, axial FLAIR, axial T1, coronal GRE axial diffusion-weighted with ADC mapping . Following the uneventful administration of 10 cc Magnevist, postcontrast axial and coronal T1-weig hted images were obtained. Images were viewed on a PACS workstation. COMPARISON: Multiple prior brain CTs the most recent dated 12/11/2016. FINDINGS: No diffusion weighted abnormalities are seen to suggest the presence of acute ischemia or recent inf arct. There is no intracranial hemorrhage, mass effect, or midline shift. No extra-axial fluid col lection is seen. The ventricles and sulci are mildly enlarged indicative of volume loss. There are mild scattered foci of T2 and FLAIR hyperintensity in the white matter, which are nonspeci fic in etiology but likely reflect chronic small vessel ischemic changes. The gradient echo images reveal no areas of susceptibility artifact to suggest blood degradation products or abnormal calcifi cation. There is heterogeneous skull bone marrow signal intensity with mild probable calvarial thickening an d areas of decreased T1 signal intensity and heterogeneous faint enhancement. Otherwise no abnormal intraparenchymal, meningeal or ependymal enhancement is seen. No abnormal intracranial vascular flow voids are noted. The pituitary and sella reveal no abnormali ty. The suprasellar cistern is clear. The visualized paranasal sinuses demonstrate mild scattered m ucosal thickening mainly in ethmoid air cells. The mastoid air cells are clear. IMPRESSION: 1. No acute intracranial hemorrhage, infarction or mass. No intracranial enhancing abnormality. 2. Mild chronic small vessel ischemic changes. 3. Mild generalized cerebral volume loss. 4. Heterogeneous skull bone marrow signal intensity with areas of decreased T1 signal intensity and heterogeneous faint enhancement. Differential consideration includes Paget disease or metabolic dis order. Metastatic disease is a less likely consideration. Consider bone scan as clinically warranted . RPTAT: HFN .Kay West MD, MD Date Time Electronically viewed and signed by .Kay West MD, MD on 12/11/2016 15:18 .N/
[2016-12-11 17:40] VITALS: PULSE 62
[2016-12-11 17:57] VITALS: BP 130/68; PULSE 67; RESP 18
[2016-12-11] MEDS ORDERED: DOCUSATE SODIUM 100 MG CAP PO PRN (18:30)
[2016-12-11] MEDS ORDERED: BISACODYL (EC) 5 MG TAB PO PRN (18:30)
[2016-12-11] MEDS ORDERED: NACL 0.9% 3 ML SYG IV SCH (18:30)
[2016-12-11] MEDS: HYDROCODONE/APAP (5/325) TAB PO PRN (18:39)
--- NOTE | 2016-12-11 18:41 | CONS ---
Date/Time of Note Date/Time of Note DATE: 12/11/16 TIME: 17:00 Assessment/Plan Assessment/Plan Additional Assessment/Plan Date of consultation: December 11, 2016 Requesting physician: Dr. Young with the emergency department Consulting service: Neurosurgery This is a 56-year-old female with past medical history significant for hypertension will apparently had a fall while walking down the stairs. The patient denies loss of consciousness. She presented to the emergency department after she developed severe low back pain.. The patient denies weakness or numbness of her upper or lower extremities. She does complain of right wrist pain that she attributes to her fall. She denies bowel or bladder dysfunction. The patient denies any prior falls. Neurosurgery was consulted after the patient was found to have a lumbar fracture. Past medical history: Hypertension Past surgical history: section Allergies: Penicillin Medications: The patient's medications are noted in the chart and reviewed Family history noncontributory Social history: The patient denies use of tobacco, alcohol, illicit or recreational drugs. Review of systems: The patient denies chest pain, shortness of breath, fever, heartburn. Physical examination: The patient is seen at bedside in the emergency department. She appears to be in some distress that she attributes to her low back pain and right wrist pain. She is awake, alert, oriented 4. Her language is fluent. Face is symmetric. Tongue is midline. Extraocular movements are grossly intact. Muscle bulk and tone is normal bilateral upper and lower extremities. Motor strength is 5 minus out of 5 bilateral upper extremities and at least 4 out of 5 bilateral lower extremities but it is somewhat limited secondary to low back pain as any movement of her lower extremities exacerbates her low back pain. Deep tendon reflexes are 1+ bilateral upper and lower extremities. Sensation to light touch is grossly normal bilateral upper and lower extremities. There is no perineal anesthesia. Rectal examination has been deferred per patient request. Gait Testing has been deferred as the patient is having severe low back pain. The patient has severe thoracolumbar tenderness at midline and over the paraspinal regions. Imaging: The patient has received a CT of the cervical, thoracic and lumbar spine as well as MRI of the brain, thoracic and lumbar spine without contrast. The imaging studies show an acute burst burst fracture of the L1 vertebrae with some mild retropulsion into the canal causing only mild spinal stenosis. The facet complexes and the ligaments appear to be intact grossly on the MR imaging studies. The patient does have some sclerotic lesions within the vertebrae in the thoracic spine but there are no other fractures noted. The radiologist has noted a lower cervical vertebral body chronic compression fracture that is questionable based on my review. The MRI and the CT of the head did not show any intracranial mass lesions, midline shift or evidence of hydrocephalus. However there are some Moth eaten like lesions that could be possibly related to Paget's disease. Assessment/plan: The patient's L1 burst fracture appears to be grossly stable without significant spinal stenosis. There is no acute neurosurgical intervention indicated unless the patient develops sensorimotor changes. The patient will need to be fitted for a TLSO brace that she would need to wear when she is upright and ambulating. The patient will be admitted by the hospitalist service for pain control. The patient can start physical therapy as soon as possible. I will order an upright AP lateral x-ray of the thoracic and lumbar spine to be done while the patient is hospitalized. The patient will need to follow-up with neurosurgery in approximately 3-4 weeks with a new set of upright AP lateral thoracolumbar x-rays for follow-up on the patient's L1 burst fracture. I would recommend further workup and evaluation for possible Paget's disease or other metabolic disorders based on the findings on the patient's CT and MRI of the head. NETTE CHEN MD Dec 11, 2016 18:41
--- NOTE | 2016-12-11 18:42 | HP ---
Date/Time of Note Date/Time of Note DATE: 12/11/16 TIME: 18:39 Assessment/Plan VTE Prophylaxis VTE Prophylaxis Intervention: SCD's Lines/Catheters IV Catheter Type (from Nrsg): Saline Lock Assessment/Plan Assessment/Plan 56 yo F admitted for back pain sp falling down a flight of stairs earlier this morning, imaging reveals acute lumbar burst fracture Neurosurg/Dr Pappas on consult NPO pending surgical eval cont home BP meds defer home asa or DVT prophx pending surgical eval pain control HPI/ROS Admit Date/Time Admit Date/Time Dec 11, 2016 at 13:23 Hx of Present Illness CC back pain HPI 56 yo F with pmhx HTN presented with LBP following a fall down a flight of stairs at home. Imaging revealed lumbar burst fracture. Pt admitted for further management. Currently reports lots of back pain, especially when she moves her R leg. Also is hungry. PMH/Family/Social Past Medical History HTN Social History lives in the community Smoking Status: Never smoker Exam/Review of Systems Vital Signs Vitals Vital Signs Date Time Temp Pulse Resp B/P Pulse Ox O2 Delivery O2 Flow Rate FiO2 12/11/16 17:57 98.1 67 18 130/68 97 Room Air Exam Exam EOMI MMM no mrg lungs clear abd soft no rashes able to wiggle toes, sensorium grossly intact bl LEs to light touch. +lumbar discomfort with AROM bl LEs imaging results reviewed Acute burst fracture of the L1 vertebral body is present with 40% loss vertebral body height with 2 mm retropulsion of the superior portion of the dorsal wall. This results in minimal central canal stenosis with AP diameter of the thecal sac measuring 10 mm. No evidence of epidural hematoma. Labs Result Diagram: 12/11/1640 12/11/16 0940 Medications Medications Current Medications Acetaminophen (Tylenol Tab) 650 mg Q6H PRN PO PAIN LEVEL 1-3 OR FEVER; Start at 18:30 Acetaminophen/ Hydrocodone Bitart ([place] (5/325)) 1 tab Q6H PRN PO PAIN LEVEL 4 -6; Start 12/11/16 at 18:30 Docusate Sodium (Colace) 100 mg Q12H PRN PO CONSTIPATION; Start 12/11/16 at 18: 30 Magnesium Hydroxide (Milk Of Mag) 30 ml DAILY PRN PO CONSTIPATION; Start at 18:30 Bisacodyl (Dulcolax) 5 mg DAILY PRN PO CONSTIPATION; Start 12/11/16 at 18:30 Amlodipine Besylate (Norvasc) 5 mg DAILY PO ; Start 12/12/16 at 09:00 Losartan Potassium (Cozaar) 25 mg DAILY PO ; Start 12/12/16 at 09:00 SHERWIN ESCALERA MD Dec 11, 2016 18:42
[2016-12-11 20:00] VITALS: Ht 154.9 cm; Wt 62.0 kg
[2016-12-11 20:14] VITALS: BP 131/59; RESP 16
[2016-12-11 20:44] VITALS: PULSE 68
[2016-12-11 21:39] VITALS: PULSE 65
[2016-12-12] VITALS (11 sets, daily range): BP systolic 117–139; BP diastolic 56–66; PULSE 64–75; RESP 16–18
[2016-12-12] MEDS: HYDROCODONE/APAP (5/325) TAB PO PRN ×4 (04:23→23:44)
[2016-12-12 07:34] LABS: BASOPHILS % 0.1 % (0.0-2.0); EOSINOPHILS # 0.1 10^3/ul (0.0-0.5); EOSINOPHILS % 1.4 % (0.0-7.0); HEMATOCRIT 38.9 % (37.0-47.0); LYMPHOCYTES # 1.3 10^3/ul (0.8-2.9); LYMPHOCYTES % 18.8 % (15.0-51.0); MEAN CORPUSCULAR HEMOGLOBIN 28.4 pg (29.0-33.0); MEAN CORPUSCULAR HGB CONC 33.4 g/dl (32.0-37.0); MEAN CORPUSCULAR VOLUME 85.1 fl (82.0-101.0); MEAN PLATELET VOLUME 9.8 fl (7.4-10.4); MONOCYTE # 0.5 10^3/ul (0.3-0.9); MONOCYTES % 7.3 % (0.0-11.0); NEUTROPHILS % 72.1 % (39.0-77.0); PLATELET COUNT 254 10^3/UL (140-415); RED BLOOD COUNT 4.57 10^6/ul (4.20-5.40); RED CELL DISTRIBUTION WIDTH 13.2 % (11.5-14.5)
[2016-12-12 08:06] LABS: CALCIUM 8.9 mg/dl (8.4-10.2); CREATININE 0.73 mg/dl (0.44-1.00); POTASSIUM 3.9 mmol/L (3.5-5.1)
--- NOTE | 2016-12-12 09:39 | RADRPT ---
PROCEDURE: XR Thoracic Spine. CLINICAL INDICATION: Back Pain. TECHNIQUE: AP and lateral views of the thoracic spine are available for review COMPARISON: CT dated 05/16/2015 FINDINGS: Exam is limited due to underpenetrated technique. There is compression fracture of L1 was 25% height loss anteriorly. The alignment is normal. The vertebral body heights are preserved. The intervertebral disk spaces are preserved. Small anterior osteophyte formations are seen in the mid thoracic spine from inferior endplate of T5 -2 superior endplate of T8. The normal thoracic kyphosis is present. No radiopaque foreign body is identified. The paraspinous soft tissues are unremarkable. IMPRESSION: 1. L1 compression fracture with 25% height loss anteriorly, new compared to previous exam. 2. Mild multilevel degenerative enthesopathy in the mid thoracic spine. RPTAT: HLDM .Ezekiel Garcia MD, MD Date Time Electronically viewed and signed by .Ezekiel Garcia MD, on 12/12/2016 09:38 .M/
[2016-12-12] MEDS: AMLODIPINE 5 MG TAB PO SCH (09:40)
[2016-12-12] MEDS: ASPIRIN 81 MG TAB PO SCH (09:40)
[2016-12-12] MEDS: LOSARTAN 25 MG TAB PO SCH (09:41)
--- NOTE | 2016-12-12 09:42 | RADRPT ---
PROCEDURE: XR Lumbar Spine. CLINICAL INDICATION: Low back pain. TECHNIQUE: Three views of the lumbar spine are available for review COMPARISON: CT dated 05/16/2015 FINDINGS: There is compression fracture at L1 with 25% height loss anteriorly. The alignment is normal. The normal lumbar lordosis is preserved. No radiopaque foreign body is identified. The vertebral body heights are maintained. The intervertebral disk spaces are maintained. The posterior elements are unremarkable. On the frontal view, there is minimal dextroscoliosis of the upper lumbar spine with apex curvature at L2.. The paraspinous soft tissues are grossly unremarkable. IMPRESSION: 1. L1 compression fracture of 25% height loss anteriorly, new compared to previous exam. RPTAT: HLDM .Ezekiel Garcia MD, Date Time Electronically viewed and signed by .Ezekiel Garcia MD, on 12/12/2016 09:42 .M/
--- NOTE | 2016-12-12 14:13 | PN ---
Date/Time of Note Date/Time of Note DATE: 12/12/16 TIME: 14:02 Assessment/Plan VTE Prophylaxis VTE Prophylaxis Intervention: SCD's Lines/Catheters IV Catheter Type (from Nrsg): Saline Lock Urinary Cath still in place: No Assessment/Plan Chief Complaint/Hosp Course Assessment/Plan: 56 yo F admitted for back pain sp falling down a flight of stairs earlier this morning, imaging reveals acute lumbar burst fracture 1. LBP: Again, imaging reveals acute lumbar burst fracture - f/u Neurosurg/Dr Pappas on consult, for now no surgical indication -Awaiting TLSO brace, continue physical therapy and pain control -SNIF versus rehab [facility] 2. HTN: cont home BP meds 3. DVT prophx: SCD's Problems: Subjective 24 Hr Interval Summary Free Text/Dictation Patient seen by physical therapy earlier today. Still having some back pain but controlled with [place]. Exam/Review of Systems Vital Signs Vitals Vital Signs Date Time Temp Pulse Resp B/P Pulse Ox O2 Delivery O2 Flow Rate FiO2 12/12/16 12:57 68 12/12/16 11:38 98.3 18 139/64 94 12/11/16 17:57 Room Air Intake and Output 12/11/16 12/11/16 12/12/16 15:00 23:00 07:00 Intake Total 1000 ml Balance 1000 ml Exam Lying in bed, family at bedside EOMI no mrg lungs clear abd soft no rashes able to wiggle toes, sensorium grossly intact bl LEs to light touch. +lumbar discomfort with AROM bl LEs Results Result Diagram: 12/12/16 0649 12/12/16 0649 Results 24 hrs Laboratory Tests Test 12/11/16 18:00 12/12/16 06:49 Alkaline Phosphatase 212 H White Blood Count 7.0 # Red Blood Count 4.57 Hemoglobin 13.0 Hematocrit 38.9 Mean Corpuscular Volume 85.1 Mean Corpuscular Hemoglobin 28.4 L Mean Corpuscular Hemoglobin Concent 33.4 Red Cell Distribution Width 13.2 Platelet Count 254 Mean Platelet Volume 9.8 Neutrophils % 72.1 Lymphocytes % 18.8 Monocytes % 7.3 Eosinophils % 1.4 Basophils % 0.1 Nucleated Red Blood Cells % 0.0 Neutrophils # (Manual) 5.0 Lymphocytes # 1.3 Monocytes # 0.5 Eosinophils # 0.1 Basophils # 0.0 Nucleated Red Blood Cells # 0.0 Sodium Level 138 Potassium Level 3.9 Chloride Level 104 Carbon Dioxide Level 27 Anion Gap 11 Blood Urea Nitrogen 17 Creatinine 0.73 Glucose Level 98 Calcium Level 8.9 Medications Medications Current Medications Acetaminophen (Tylenol Tab) 650 mg Q6H PRN PO PAIN LEVEL 1-3 OR FEVER; Start at 18:30 Acetaminophen/ Hydrocodone Bitart ([place] (5/325)) 1 tab Q6H PRN PO PAIN LEVEL 4 -6 Last administered on 12/12/16 12:22; Admin Dose 1 TAB; Start 12/11/16 at 18: 30 Docusate Sodium (Colace) 100 mg Q12H PRN PO CONSTIPATION; Start 12/11/16 at 18: 30 Magnesium Hydroxide (Milk Of Mag) 30 ml DAILY PRN PO CONSTIPATION; Start at 18:30 Bisacodyl (Dulcolax) 5 mg DAILY PRN PO CONSTIPATION; Start 12/11/16 at 18:30 Amlodipine Besylate (Norvasc) 5 mg DAILY PO Last administered on 12/12/16 09: 40; Admin Dose 5 MG; Start 12/12/16 at 09:00 Losartan Potassium (Cozaar) 25 mg DAILY PO Last administered on 12/12/16 09:41 ; Admin Dose 25 MG; Start 12/12/16 at 09:00 Aspirin (Aspirin) 81 mg DAILY PO Last administered on 12/12/16 09:40; Admin Dose 81 MG; Start 12/12/16 at 09:00 MIRIAM FERRARI Dec 12, 2016 14:13
[2016-12-12] MEDS ORDERED: morphine 2 MG INJ IV PRN (14:30)
--- NOTE | 2016-12-12 16:40 | RADRPT ---
PROCEDURE: Whole body bone scan study CLINICAL INDICATION: 56 -year-old patient with bony pain, for evaluation for Paget's disease. TECHNIQUE: Following the intravenous injection of 25.4 mCi of Tc-99m MDP, whole body anterior and posterior planar images were obtained . COMPARISON: MRI of the brain dated December 11, 2016, MRI of the thoracic and lumbar spine dated December 11, 2016, x-ray of the thoracic and lumbar spine dated December 11, 2016. FINDINGS: Intensely increased uptake is visualized in the calvarium, which may be seen in association with Pag et's disease. Numerous foci of intensely increased activity are seen in the spine, at approximately T4, T6, T9-T10 , L1 and L2 levels at the location of the sclerotic bony lesions identified on the previous cross-se ctional imaging. Mildly increased activity is seen at approximately L3 and L4 lumbar spine. No other definite abnormal areas of increased activity or asymmetries are visualized in the study an d distribution of radionuclide is homogeneous in the skull, spine, rib cages, sternum, pelvis and vi sualized portions of the upper and lower extremities. Of incidental note, there is no evidence of mass abnormalities of the kidneys or obstructive uropath y. IMPRESSION: 1. Numerous foci of intensely increased uptake in the thoracic and lumbar spine, as described above , specific findings of given the presence of sclerotic bony lesions on the previous MRI, skeletal me tastases cannot be ruled out. 2. Increased uptake in the calvarium may be seen in association with Paget's disease. 3. No other definite skeletal abnormalities. RPTAT: HH .Naima Wells MD, Date Time Electronically viewed and signed by .Naima Wells MD, on 12/12/2016 16:40 .L/
[2016-12-12] MEDS ORDERED: HYDROmorphONE 1 MG/ML SYG IV PRN (17:00)
[2016-12-12] MEDS: MAGNESIUM HYDROXIDE 30ML CUP PO PRN (20:01)
[2016-12-13] VITALS (11 sets, daily range): BP systolic 105–139; BP diastolic 57–72; PULSE 65–81; RESP 17–18
[2016-12-13] MEDS: HYDROCODONE/APAP (5/325) TAB PO PRN ×2 (09:05→20:37)
[2016-12-13] MEDS: LOSARTAN 25 MG TAB PO SCH (09:05)
[2016-12-13] MEDS: AMLODIPINE 5 MG TAB PO SCH (09:05)
[2016-12-13] MEDS: ASPIRIN 81 MG TAB PO SCH (09:05)
--- NOTE | 2016-12-13 16:14 | PDOCDIS ---
Discharge Instructions CONDITION Patient Condition: Stable MIRIAM FERRARI Dec 13, 2016 16:14
--- NOTE | 2016-12-13 16:39 | PN ---
Date/Time of Note Date/Time of Note DATE: 12/13/16 TIME: 16:35 Assessment/Plan VTE Prophylaxis VTE Prophylaxis Intervention: SCD's Lines/Catheters IV Catheter Type (from Nrsg): Saline Lock Urinary Cath still in place: No Assessment/Plan Chief Complaint/Hosp Course Assessment/Plan: 56 yo F admitted for back pain sp falling down a flight of stairs earlier this morning, imaging reveals acute lumbar burst fracture 1. LBP: Again, imaging reveals acute lumbar burst fracture. - f/u Neurosurg/Dr Pappas on consult, for now no surgical indication -ContinueTLSO brace, continue physical therapy and pain control -Will also get hematology oncology consult given the findings on the nuclear medicine bone scan as well as the findings on the brain scan, rule out Paget's disease versus skeletal metastasis. We will also check vitamin D levels, PTH levels, calcium levels. - We will also check right wrist MRI given findings on the right wrist x-ray a possible scaphoid fracture 2. HTN: cont home BP meds 3. DVT prophx: SCD's 4. Dispo: Likely disposition to snf facility in 24 hours after hematology oncology evaluation, And if no further workup from their perspective is needed Problems: Subjective 24 Hr Interval Summary Free Text/Dictation .Patient received TLSO brace. No acute events overnight. Worked with PT today Exam/Review of Systems Vital Signs Vitals Vital Signs Date Time Temp Pulse Resp B/P Pulse Ox O2 Delivery O2 Flow Rate FiO2 12/13/16 16:23 67 12/13/16 15:13 98.4 17 126/62 95 12/11/16 17:57 Room Air Intake and Output 12/12/16 12/12/16 12/13/16 15:00 23:00 07:00 Intake Total 670 ml 500 ml Balance 670 ml 500 ml Exam Lying in bed EOMI no mrg lungs clear abd soft no rashes able to wiggle toes, sensorium grossly intact bl LEs to light touch. +lumbar discomfort with AROM bl LEs Results Result Diagram: 12/12/16 0649 12/12/16 0649 Medications Medications Current Medications Acetaminophen (Tylenol Tab) 650 mg Q6H PRN PO PAIN LEVEL 1-3 OR FEVER; Start at 18:30 Acetaminophen/ Hydrocodone Bitart ([place] (5/325)) 1 tab Q6H PRN PO PAIN LEVEL 4 -6 Last administered on 12/13/16 09:05; Admin Dose 1 TAB; Start 12/11/16 at 18: 30 Docusate Sodium (Colace) 100 mg Q12H PRN PO CONSTIPATION Last administered on 09:05; Admin Dose 100 MG; Start 12/11/16 at 18:30 Magnesium Hydroxide (Milk Of Mag) 30 ml DAILY PRN PO CONSTIPATION Last administered on 12/12/16 20:01; Admin Dose 30 ML; Start 12/11/16 at 18:30 Bisacodyl (Dulcolax) 5 mg DAILY PRN PO CONSTIPATION Last administered on 15:25; Admin Dose 5 MG; Start 12/11/16 at 18:30 Amlodipine Besylate (Norvasc) 5 mg DAILY PO Last administered on 12/13/16 09: 05; Admin Dose 5 MG; Start 12/12/16 at 09:00 Losartan Potassium (Cozaar) 25 mg DAILY PO Last administered on 12/13/16 09:05 ; Admin Dose 25 MG; Start 12/12/16 at 09:00 Aspirin (Aspirin) 81 mg DAILY PO Last administered on 12/13/16 09:05; Admin Dose 81 MG; Start 12/12/16 at 09:00 Morphine Sulfate (morphine) 1 mg Q4H PRN IV PAIN LEVEL 7-10 Last administered on 12/12/16 15:31; Admin Dose 1 MG; Start 12/12/16 at 14:30 Hydromorphone HCl (Dilaudid) 1 mg Q3H PRN IV PAIN Last administered on 15:25; Admin Dose 1 MG; Start 12/12/16 at 17:00 Procedures Procedures Whole Body Bone Scan Study: IMPRESSION: 1. Numerous foci of intensely increased uptake in the thoracic and lumbar spine , as described above, specific findings of given the presence of sclerotic bony lesions on the previous MRI, skeletal metastases cannot be ruled out. 2. Increased uptake in the calvarium may be seen in association with Paget's disease. 3. No other definite skeletal abnormalities. MIRIAM FERRARI Dec 13, 2016 16:39
[2016-12-14] VITALS (12 sets, daily range): BP systolic 111–133; BP diastolic 54–76; PULSE 63–71; RESP 18–20
[2016-12-14 06:21] LABS: BASOPHILS % 0.2 % (0.0-2.0); EOSINOPHILS # 0.3 10^3/ul (0.0-0.5); EOSINOPHILS % 5.7 % (0.0-7.0); HEMATOCRIT 41.2 % (37.0-47.0); HEMOGLOBIN 13.7 g/dl (12.0-16.0); LYMPHOCYTES # 1.6 10^3/ul (0.8-2.9); MEAN CORPUSCULAR HEMOGLOBIN 28.5 pg (29.0-33.0); MEAN CORPUSCULAR HGB CONC 33.3 g/dl (32.0-37.0); MEAN CORPUSCULAR VOLUME 85.8 fl (82.0-101.0); MEAN PLATELET VOLUME 9.4 fl (7.4-10.4); MONOCYTE # 0.5 10^3/ul (0.3-0.9); MONOCYTES % 8.8 % (0.0-11.0); NEUTROPHILS % 54.1 % (39.0-77.0); PLATELET COUNT 257 10^3/UL (140-415); RED CELL DISTRIBUTION WIDTH 13.2 % (11.5-14.5); WHITE BLOOD COUNT 5.1 10^3/ul (4.8-10.8)
[2016-12-14 06:59] LABS: CALCIUM 9.8 mg/dl (8.4-10.2); CREATININE 0.73 mg/dl (0.44-1.00); MAGNESIUM 1.9 mg/dl (1.7-2.5); PHOSPHORUS 5.1 mg/dl (2.5-4.9); POTASSIUM 4.3 mmol/L (3.5-5.1)
--- NOTE | 2016-12-14 08:47 | RADRPT ---
PROCEDURE: MRI OF THE RIGHT WRIST. CLINICAL INDICATION: Clinical concern is for a nondisplaced fracture. Right wrist pain. Trauma. TECHNIQUE: Multiple MR pulse sequences in multiple planes were obtained. Images were interpreted on high-resolution PACS system. COMPARISON: 12/11/2016 FINDINGS: Osseous structures and cartilage surfaces: There is no acute fracture or osteonecrosis. Mild chondra l thinning is seen at the radiocarpal and intercarpal articulations. Cartilage is more pronounced at the triscaphe joint noting moderate cartilage loss and small marginal osteophyte formation. Degener ative, traction cyst is seen within the hamate bone, a commonly encountered finding. Tendons: There is mild to moderate extensor carpi ulnaris tendinosis and intrasubstance fissuring se en just distal to the ulnar groove. No rupture is seen. The remaining extensor tendons are maintaine d at the other 5 compartments. Ligaments: The scapholunate and lunotriquetral ligaments are intact. No evidence for dorsal ganglion formation. Triangular fibrocartilage complex: There is degenerative thinning of the articular disc seen on the coronal sequence image 8 without a full-thickness tear. It is radial and ulnar attachments are intac t. Carpal tunnel: No evidence for mass lesion. No evidence for median neuritis. Guyon's canal : The ulnar nerve appears normal. No mass lesion is seen. No evidence for neuritis. No evidence for neuroma. Synovium: There is no proliferative synovitis or marginal erosions. A 5 mm soft tissue ganglion seen at the volar aspect of the wrist related to the radioscaphoid capitate ligament origin. IMPRESSION: 1. No acute osseous abnormality or evidence of fracture and 2. No acute ligament injury. 3. Mild to moderate extensor carpi ulnaris tendinosis without rupture. RPTAT: EE .Ho Purdy MD, MD Date Time Electronically viewed and signed by .Ho Purdy MD, MD on 12/14/2016 08:46 .d/
[2016-12-14] MEDS: MAGNESIUM HYDROXIDE 30ML CUP PO PRN (09:22)
[2016-12-14] MEDS: AMLODIPINE 5 MG TAB PO SCH (09:22)
[2016-12-14] MEDS: ASPIRIN 81 MG TAB PO SCH (09:22)
[2016-12-14] MEDS: LOSARTAN 25 MG TAB PO SCH (09:22)
[2016-12-14] MEDS: HYDROCODONE/APAP (5/325) TAB PO PRN ×2 (09:23→17:02)
--- NOTE | 2016-12-14 11:25 | PN ---
Date/Time of Note Date/Time of Note DATE: 12/14/16 TIME: 11:20 Assessment/Plan VTE Prophylaxis VTE Prophylaxis Intervention: SCD's Lines/Catheters IV Catheter Type (from Nrs): Saline Lock Urinary Cath still in place: No Assessment/Plan Chief Complaint/Hosp Course Assessment/Plan: 56 yo F admitted for back pain sp falling down a flight of stairs earlier this morning, imaging reveals acute lumbar burst fracture. 1. LBP: Again, imaging reveals acute lumbar burst fracture. ESR and CRP is slightly elevated. -ContinueTLSO brace, continue physical therapy and pain control -Appreciate hematology oncology consult given the findings on the nuclear medicine bone scan as well as the findings on the brain scan, rule out Paget's disease versus skeletal metastasis. They are recommending biopsy of vertebral body of the thoracic spine, ideally, to get a better idea if this is indeed some kind of metastatic cancer or not. We will check with neurosurgery regarding possible procedure for this. -Also will follow-up tumor markers, ultrasound of the breast, skeletal x-ray test ordered by hematology oncology team as well. - MRI right wrist results noted. No fracture noted, although there is mild to moderate extensor carpi ulnaris tendinosis without rupture. 2. HTN: cont home BP meds 3. DVT prophx: SCD's Problems: Subjective 24 Hr Interval Summary Free Text/Dictation Patient worked with physical therapy yesterday. Seen by hematology oncology team this morning. Awaiting breast ultrasound and skeletal x-ray. Exam/Review of Systems Vital Signs Vitals Vital Signs Date Time Temp Pulse Resp B/P Pulse Ox O2 Delivery O2 Flow Rate FiO2 12/14/16 08:13 64 12/14/16 07:56 98.3 20 126/66 95 12/11/16 17:57 Room Air Intake and Output 12/13/16 12/13/16 12/14/16 15:00 23:00 07:00 Intake Total 300 ml Balance 300 ml Exam Lying in bed, family at bedside, no acute distress EOMI no mrg lungs clear abd soft no rashes able to wiggle toes, sensorium grossly intact bl LEs to light touch. +lumbar discomfort with AROM bl LEs Results Result Diagram: 12/14/16 0607 12/14/16 0607 Results 24 hrs Laboratory Tests Test 12/13/16 16:37 12/14/16 06:07 Vitamin D 1,25-Dihydroxy 23.6 L White Blood Count 5.1 # Red Blood Count 4.80 Hemoglobin 13.7 Hematocrit 41.2 Mean Corpuscular Volume 85.8 Mean Corpuscular Hemoglobin 28.5 L Mean Corpuscular Hemoglobin Concent 33.3 Red Cell Distribution Width 13.2 Platelet Count 257 Mean Platelet Volume 9.4 Neutrophils % 54.1 Lymphocytes % 31.0 Monocytes % 8.8 Eosinophils % 5.7 Basophils % 0.2 Nucleated Red Blood Cells % 0.0 Neutrophils # (Manual) 2.8 Lymphocytes # 1.6 Monocytes # 0.5 Eosinophils # 0.3 Basophils # 0.0 Nucleated Red Blood Cells # 0.0 Erythrocyte Sedimentation Rate 38 H Sodium Level 136 Potassium Level 4.3 Chloride Level 100 Carbon Dioxide Level 30 Anion Gap 10 Blood Urea Nitrogen 22 H Creatinine 0.73 Glucose Level 97 Calcium Level 9.8 Phosphorus Level 5.1 H Magnesium Level 1.9 C-Reactive Protein 2.3 H Medications Medications Current Medications Acetaminophen (Tylenol Tab) 650 mg Q6H PRN PO PAIN LEVEL 1-3 OR FEVER; Start at 18:30 Acetaminophen/ Hydrocodone Bitart ([place] (5/325)) 1 tab Q6H PRN PO PAIN LEVEL 4 -6 Last administered on 12/14/16 09:23; Admin Dose 1 TAB; Start 12/11/16 at 18: 30 Docusate Sodium (Colace) 100 mg Q12H PRN PO CONSTIPATION Last administered on 09:05; Admin Dose 100 MG; Start 12/11/16 at 18:30 Magnesium Hydroxide (Milk Of Mag) 30 ml DAILY PRN PO CONSTIPATION Last administered on 12/14/16 09:22; Admin Dose 30 ML; Start 12/11/16 at 18:30 Bisacodyl (Dulcolax) 5 mg DAILY PRN PO CONSTIPATION Last administered on 15:25; Admin Dose 5 MG; Start 12/11/16 at 18:30 Amlodipine Besylate (Norvasc) 5 mg DAILY PO Last administered on 12/14/16 09: 22; Admin Dose 5 MG; Start 12/12/16 at 09:00 Losartan Potassium (Cozaar) 25 mg DAILY PO Last administered on 12/14/16 09:22 ; Admin Dose 25 MG; Start 12/12/16 at 09:00 Aspirin (Aspirin) 81 mg DAILY PO Last administered on 12/14/16 09:22; Admin Dose 81 MG; Start 12/12/16 at 09:00 Morphine Sulfate (morphine) 1 mg Q4H PRN IV PAIN LEVEL 7-10 Last administered on 12/12/16 15:31; Admin Dose 1 MG; Start 12/12/16 at 14:30 Hydromorphone HCl (Dilaudid) 1 mg Q3H PRN IV PAIN Last administered on 15:25; Admin Dose 1 MG; Start 12/12/16 at 17:00 MIRIAM FERRARI Dec 14, 2016 11:25
--- NOTE | 2016-12-14 13:17 | RADRPT ---
PROCEDURE: Bilateral breast ultrasound. CLINICAL INDICATION: Breast mass TECHNIQUE: Bilateral whole breast, 4 quadrant and retroareolar, and axillary sonography was perfor med. COMPARISON: None FINDINGS: No solid or suspicious masses. No areas of architectural distortion. No malignant adenopathy. No dominant cysts are present. IMPRESSION: 1. No sonographic findings of malignancy. 2. Recommend additional imaging evaluation with a diagnostic mammogram for evaluation of the region of the patient's breast mass. BI-RADS 0: INCOMPLETE, NEED ADDITIONAL IMAGING EVALUATION RPTAT: EE .South Laurent MD, MD Date Time Electronically viewed and signed by .South Laurent MD, on 12/14/2016 13:16 .M/
--- NOTE | 2016-12-14 18:48 | RADRPT ---
PROCEDURE: Plain radiographic metastatic skeletal survey. CLINICAL INDICATION: Bone pain. Sclerotic bone lesions. TECHNIQUE: 31 images were obtained. Frontal and lateral calvarium, frontal and lateral spine, fron michelle pelvis, bilateral ribs, frontal and lateral images of bilateral long bones. COMPARISON: Nuclear medicine whole-body bone scan dated 12/12/2016. MRI of lumbar spine and thorac ic spine dated 12/11/2016. CT scan of the thoracic spine, pelvis, and lumbar spine dated 12/11/2016 kaitlynn FINDINGS: As seen on prior imaging studies, there is a burst fracture of superior L1 vertebral body. There is no other fracture. Sclerotic lesions visualized on the prior CT scan are not visualized on the plain radiographs. There is no other sclerotic or lytic lesion. The lungs are clear. There is no signific ant arthropathy. There are mild degenerative changes of the lower cervical spine with anterior osteo phytes at C5-6 and C6-7. IMPRESSION: 1. Burst fracture of superior L1 vertebral body as seen previously. 2. Degenerative changes at C5-6 and C6-7. 3. Otherwise unremarkable skeletal survey. RPTAT: QQ .Kyaw Reeves MD, Date Time Electronically viewed and signed by .Kyaw Reeves MD, on 12/14/2016 18:48 .R/
--- NOTE | 2016-12-14 23:00 | CONS ---
Date/Time of Note Date/Time of Note DATE: 12/14/16 TIME: 22:46 Assessment/Plan Assessment/Plan Chief Complaint/Hosp Course 56 yo female with s/p fall who presents with multiple sclerotic lesion in the calvarium, as well as T4, T6, T9-T10, L1 and L2 levels. #Sclerotic lesions: -AT this time my suspicion for multiple myeloma is low given the negative metastatic surgery. We will follow up the SPEP -Suspicion for underlying breast cancer with bone mets is low given the normal breast exam and ultrasound -the only way really to evaluate if these bony lesions are indeed pagets versus bone mets is to bx them -I have spoke to Dr Pappas who is planning on biopsying the calvarial lesion as an out patient -unfortunately due to insurance reasons I cannot follow this patient as an out patient -if she does have a diagnosis of cancer, she will have to be directed by her insurance for further oncologic care Problems: Consultation Date/Type/Reason Admit Date/Time Dec 11, 2016 at 13:23 Date of Consultation: Dec 14, 2016 Type of Consultation: Oncology Reason for Consultation concern for bone mets Referring Provider: MIRIAM FERRARI Hx of Present Illness 56 yo F with hypertension, who presented to ER presented with lower back pain after following a fall down a flight of stairs at home. Pt has had a series of images whch have raised concern for metastatic disease. T spine MRI: Acute L1 vertebral body burst fracture with approximately 40% vertebral body height loss, sclerotic foci in the T5, T8, T9-T11 and T12 vertebral bodies are hypointense on multiple sequences and represent nonspecific sclerotic foci. T spine CT: L1 vertebral body burst fracture, chronic appearing compression fracture of the C7 vertebral body with approximately 30% vertebral body height loss and no retropulsion of the spinal canal. Multiple sclerotic lesions noted diffusely in the thoracic spine. Lumbar Spine MRI: Acute burst fracture of the L1 vertebral body Brain MRI: Heterogeneous skull bone marrow signal intensity concerning for Paget disease vs metastatic disease. Bone Scan: increased uptake is visualized in the calvarium, which may be seen in association with Paget's disease. Numerous foci of intensely increased activity are seen in the spine, at approximately T4, T6, T9-T10, L1 and L2 levels at the location of the sclerotic bony lesions identified on the previous cross-sectional imaging. Mildly increased activity is seen at approximately L3 and L4 lumbar spine. Skeletal Survey and Breast ultrasound are unremarkable. Given the hyperintense lesions seen on bone scan we have been consulted for workup of underlying metastatic cancer. RPTAT: HDC Constitutional: other (in pain over entire body) Eyes: no complaints ENT: no complaints Cardiovascular: no complaints Gastrointestinal: pain Genitourinary: no complaints Musculoskeletal: back pain, bone/joint pain, neck pain, restricted range of motion Neurologic: no complaints Past Medical History Hypertension Family History Significant Family History: no pertinent family hx Social History Alcohol Use: none Smoking Status: Never smoker Drug Use: none Exam/Review of Systems Vital Signs Vitals Vital Signs Date Time Temp Pulse Resp B/P Pulse Ox O2 Delivery O2 Flow Rate FiO2 12/14/16 20:23 71 12/14/16 20:00 98.3 19 124/62 97 12/11/16 17:57 Room Air Intake and Output 12/13/16 12/13/16 12/14/16 15:00 23:00 07:00 Intake Total 300 ml Balance 300 ml Exam Constitutional: alert, frail, oriented Psych: anxiety, depression Head: normocephalic Eyes: nl conjunctiva ENMT: nl external ears & nose Neck: non-tender, supple Respiratory: clear to auscultation, normal air movement Cardiovascular: regular rate and rhythm Gastrointestinal: soft Musculoskeletal: nl extremities to inspection, nl gait and stance Extremities: normal pulses Results Result Diagram: 12/14/16 0607 12/14/16 0607 Results 24 hrs Laboratory Tests Test 12/14/16 06:07 White Blood Count 5.1 # Red Blood Count 4.80 Hemoglobin 13.7 Hematocrit 41.2 Mean Corpuscular Volume 85.8 Mean Corpuscular Hemoglobin 28.5 L Mean Corpuscular Hemoglobin Concent 33.3 Red Cell Distribution Width 13.2 Platelet Count 257 Mean Platelet Volume 9.4 Neutrophils % 54.1 Lymphocytes % 31.0 Monocytes % 8.8 Eosinophils % 5.7 Basophils % 0.2 Nucleated Red Blood Cells % 0.0 Neutrophils # (Manual) 2.8 Lymphocytes # 1.6 Monocytes # 0.5 Eosinophils # 0.3 Basophils # 0.0 Nucleated Red Blood Cells # 0.0 Erythrocyte Sedimentation Rate 38 H Sodium Level 136 Potassium Level 4.3 Chloride Level 100 Carbon Dioxide Level 30 Anion Gap 10 Blood Urea Nitrogen 22 H Creatinine 0.73 Glucose Level 97 Calcium Level 9.8 Phosphorus Level 5.1 H Magnesium Level 1.9 C-Reactive Protein 2.3 H Medications Medications Current Medications Acetaminophen (Tylenol Tab) 650 mg Q6H PRN PO PAIN LEVEL 1-3 OR FEVER; Start at 18:30 Acetaminophen/ Hydrocodone Bitart ([place] (5/325)) 1 tab Q6H PRN PO PAIN LEVEL 4 -6 Last administered on 12/14/16 17:02; Admin Dose 1 TAB; Start 12/11/16 at 18: 30 Docusate Sodium (Colace) 100 mg Q12H PRN PO CONSTIPATION Last administered on 09:05; Admin Dose 100 MG; Start 12/11/16 at 18:30 Magnesium Hydroxide (Milk Of Mag) 30 ml DAILY PRN PO CONSTIPATION Last administered on 12/14/16 09:22; Admin Dose 30 ML; Start 12/11/16 at 18:30 Bisacodyl (Dulcolax) 5 mg DAILY PRN PO CONSTIPATION Last administered on 15:25; Admin Dose 5 MG; Start 12/11/16 at 18:30 Amlodipine Besylate (Norvasc) 5 mg DAILY PO Last administered on 12/14/16 09: 22; Admin Dose 5 MG; Start 12/12/16 at 09:00 Losartan Potassium (Cozaar) 25 mg DAILY PO Last administered on 12/14/16 09:22 ; Admin Dose 25 MG; Start 12/12/16 at 09:00 Aspirin (Aspirin) 81 mg DAILY PO Last administered on 12/14/16 09:22; Admin Dose 81 MG; Start 12/12/16 at 09:00 Morphine Sulfate (morphine) 1 mg Q4H PRN IV PAIN LEVEL 7-10 Last administered on 12/12/16 15:31; Admin Dose 1 MG; Start 12/12/16 at 14:30 Hydromorphone HCl (Dilaudid) 1 mg Q3H PRN IV PAIN Last administered on 15:25; Admin Dose 1 MG; Start 12/12/16 at 17:00 PRETTY MAN M.D. Dec 14, 2016 23:00
[2016-12-15] VITALS (8 sets, daily range): BP systolic 119–156; BP diastolic 58–76; PULSE 60–77; RESP 19
[2016-12-15 04:36] LABS: PROTEIN, TOTAL 7.4 g/dL (6.1-8.1)
[2016-12-15 07:04] LABS: BASOPHILS % 0.5 % (0.0-2.0); EOSINOPHILS # 0.3 10^3/ul (0.0-0.5); EOSINOPHILS % 6.7 % (0.0-7.0); HEMATOCRIT 42.3 % (37.0-47.0); HEMOGLOBIN 13.6 g/dl (12.0-16.0); LYMPHOCYTES # 1.5 10^3/ul (0.8-2.9); LYMPHOCYTES % 35.2 % (15.0-51.0); MEAN CORPUSCULAR HEMOGLOBIN 27.5 pg (29.0-33.0); MEAN CORPUSCULAR HGB CONC 32.2 g/dl (32.0-37.0); MEAN CORPUSCULAR VOLUME 85.6 fl (82.0-101.0); MEAN PLATELET VOLUME 9.8 fl (7.4-10.4); MONOCYTE # 0.5 10^3/ul (0.3-0.9); MONOCYTES % 10.6 % (0.0-11.0); NEUTROPHILS % 46.8 % (39.0-77.0); PLATELET COUNT 268 10^3/UL (140-415); RED BLOOD COUNT 4.94 10^6/ul (4.20-5.40); RED CELL DISTRIBUTION WIDTH 13.4 % (11.5-14.5); WHITE BLOOD COUNT 4.3 10^3/ul (4.8-10.8)
[2016-12-15 07:32] LABS: CREATININE 0.72 mg/dl (0.44-1.00); POTASSIUM 4.5 mmol/L (3.5-5.1)
[2016-12-15] MEDS: AMLODIPINE 5 MG TAB PO SCH (09:06)
[2016-12-15] MEDS: ASPIRIN 81 MG TAB PO SCH (09:06)
[2016-12-15] MEDS: LOSARTAN 25 MG TAB PO SCH (09:06)
[2016-12-15] MEDS ORDERED: NA PHOSPHATE/BIPHOS 133 ML ENEMA PR PRN (11:30)
--- NOTE | 2016-12-15 12:49 | DS ---
DATE OF ADMISSION: 12/11/2016 DATE OF DISCHARGE: 12/15/2016 HOSPITAL COURSE: This is a 56-year-old female originally admitted on December 11, 2016, being discharged to a half-way facility on December 15, 2016. The patient came in with back pain. She has a prior history of hypertension. Apparently she had fallen down a flight of stairs at home. Imaging done on this admission revealed a lumbar burst fracture in the L1 area and she was admitted. She was seen by neurosurgery team and hematology oncology team and physical therapy team during this hospital stay. ESR and CRP were also found to be elevated, as well. She was initially recommended by physical therapy team and neurosurgery team to get a TLSO brace, which the patient received, and also continue physical therapy and pain control while she was here. In addition to the acute lumbar burst fracture that was found, there were some findings on the nuclear medicine bone scan as well as findings on the brain scan that were suspicious of multiple sclerotic lesions in the calvarium as well as in T4, T6, T9 to T10, and L1 to L2 levels. Regarding the sclerotic lesions, from hematology oncology perspective, their suspicion for multiple myeloma was low, although SPEP study was ordered and results are pending. There is also a low suspicion for underlying breast cancer with bone metastasis given the normal breast exam and breast ultrasound which was performed on this admission. They indicated that the only really way to evaluate these bony lesions if they are something like a Paget's disease versus a bone metastasis is to biopsy them, so this was discussed with neurosurgery team and they recommended biopsying the calvarial lesion as an outpatient, which will be performed. The patient continued physical therapy. Her back pain symptoms improved with physical therapy and the brace and also pain control medications. She was able to ambulate with assistance and from recommendations from the consulting teams and the physical therapy team, she will be discharged to half-way facility today in improved condition. Of note, this specific MRI findings of the spine showed an acute L1 vertebral body burst fracture with approximately 40 percent vertebral body height loss and sclerotic foci of T5, T8, T9 to T11 and T12 vertebral bodies. DISCHARGE MEDICATIONS: She will be sent with 1. Tylenol 650 q.6 hours p.r.n. 2. Amlodipine 5 mg daily. 3. Aspirin 81 mg daily. 4. Dulcolax 5 mg daily p.r.n. 5. Colace 100 mg q.12 hours p.r.n. 6. [place] 5/325 q.6 hours p.r.n. 7. Dilaudid 1 mg IV q.3 hours p.r.n. 8. Losartan 25 mg daily. 9. Milk of Mag 30 mL daily p.r.n. 10. Morphine 1 mg IV q.4 hours p.r.n. 11. Fleet enema daily as needed. DISCHARGE INSTRUCTIONS: Again, she will need to get the calvarium biopsy performed in next 1-2 weeks by neurosurgery as an outpatient to determine if this is Paget's disease versus some kind of bony metastases. FINAL DIAGNOSES: 1. Status post fall with low back pain and findings of L1 burst fracture, now on physical therapy in TLSO brace. 2. Multiple sclerotic lesions in the calvarium as well as T4, T6, T9 to T10, L1 and L2 levels of the spine, lower suspicion for multiple myeloma versus breast cancer with bony metastasis versus Paget's disease, awaiting outpatient bone biopsy to further determine this. 3. Essential hypertension. Time spent discharging the patient 50 minutes. Dictated By: Shmuel Fierro MD /belkys/reggie /Document#: [id number]
[2016-12-15] MEDS: HYDROCODONE/APAP (5/325) TAB PO PRN (15:45)
[2016-12-15 19:11] LABS: PTH CALCIUM 9.4 mg/dL (8.6-10.4)
[2016-12-15 22:03] LABS: ABNORMAL PROTEIN BAND 1 0.1 g/dL (NONE DETECTED)
== END 2016-12-15 15:59 | DRG 552 ==
LOC: E/R 09:12 → TEL 13:23
PROVIDERS: ADMIT Internal Medicine; ATTEND Internal Medicine
DX: S32.011A Stable burst fracture of first lumbar vertebra, initial encounter for closed fracture (principal); I10 Essential (primary) hypertension; M48.52XA Collapsed vertebra, not elsewhere classified, cervical region, initial encounter for fracture; M25.531 Pain in right wrist; W10.9XXA Fall (on) (from) unspecified stairs and steps, initial encounter; Y92.009 Unspecified place in unspecified non-institutional (private) residence as the place of occurrence of the external cause; M88.0 Osteitis deformans of skull; M88.1 Osteitis deformans of vertebrae
CPT/HCPCS: 70450; 70553; 71010; 72072; 72100; 72125; 72128; 72131; 72146; 72148; 72192; 73221; 77075; 78306; 80048; 81001; 82306; 82652; 83735; 83970; 84075; 84100; 84155; 84165; 85025; 85651; 86140; 86300; 93005; 96374; 96375; 96376; 97116; 97161; 97530; A9503; J1170; J2270; J2405

== ENCOUNTER 2017-03-08 08:06 | Emergency (ER) | payer OTHER ==
[~2017-03-08] VITALS: Ht 154.9 cm; Wt 64.0 kg
[~2017-03-08 08:06] MED LIST changes: -AMLO-145; +AMLO5TAB4 PO; +ASPI81TA3 PO; -DICY10CA60 PO; -HYDR-906 PO; -IBUP-1542 PO; -IBUP-725; -IBUP400T22 PO; +LOSA25TA5 PO; -ONDA4TAB8 PO; -TRAM50TA2 PO
[2017-03-08 08:11] VITALS: Ht 154.9 cm; Wt 64.0 kg
--- NOTE | 2017-03-08 08:25 | ERD ---
ER Documentation Chief Complaint Chief Complaint chest pain x 2 days HPI This is a 56-year-old female with a history of hypertension, hyperlipidemia and a recent L1 spinal fracture for which she is wearing a brace who is presenting with chest pain for 2 days. The patient does not endorse any trauma or injury or extra exertion to the chest. She does state that it hurts more with movement. The patient feels that it is pinpoint in the left chest and nonradiating. It is worse with palpation. It is improved when lying still. The patient's pain is sharp and only lasts a few seconds at a time. The patient does not have any chest pain today. It is not associated with lightheadedness or dizziness or nausea or vomiting or shortness of breath or diaphoresis. The patient denies feeling sick recently. The patient denies fever or chills. The patient has had no headache or vision changes. The patient does not endorse neck pain. Patient does have mild back pain, which is unchanged since her injury. The patient has had no shortness of breath or trouble breathing. The patient denies abdominal pain or changes to bowel movements or urination. The patient has had no focal deficits. The patient has had no weakness or numbness or tingling to the face or extremities. ROS All systems reviewed and are negative except as per history of present illness. Medications Home Meds Reported Medications Hydrocodone/Acetaminophen ([place] 5-325 Tablet) 1 Each Tablet, 1 EACH PO Q12 Y for SEVERE PAIN LEVEL 7-10, TAB 03/08/17 Losartan Potassium* (Losartan Potassium*) 25 Mg Tablet, 25 MG PO DAILY, TAB 12/11/16 Aspirin* (Aspirin* Chew) 81 Mg Tab.chew, 81 MG PO DAILY, TAB.CHEW 12/11/16 Amlodipine Besylate* (Norvasc*) 5 Mg Tablet, 5 MG PO DAILY, TAB 12/11/16 Allergies Allergies: Coded Allergies: Penicillins (Verified Allergy, Mild, RASH, 03/08/17) PMhx/Soc History of Surgery: Yes (c/s) Anesthesia Reaction: No Hx Neurological Disorder: No Hx Respiratory Disorders: No Hx Cardiac Disorders: Yes (HTN, HLD) Hx Psychiatric Problems: No Hx Miscellaneous Medical Probl: Yes (L1 spinal fracture) Hx Alcohol Use: No Hx Substance Use: No Hx Tobacco Use: No FmHx Family History: No coronary disease, No diabetes Physical Exam Vitals Vital Signs Date Time Temp Pulse Resp B/P Pulse Ox O2 Delivery O2 Flow Rate FiO2 03/08/17 11:30 76 18 154/75 Room Air 03/08/17 08:11 97.4 74 18 136/69 97 Physical Exam Const: No apparent distress, well-developed, well-nourished Head: Normocephalic, Atraumatic Eyes: Normal Conjunctiva. Extraocular movements intact. Pupils equal, round and reactive to light ENT: Normal External Ears, Nose and Mouth. Neck: Full range of motion. No meningismus. Resp: Clear to auscultation bilaterally, No wheezes, rales or rhonchi Cardio: Regular rate and rhythm. No murmurs, rubs or gallops. Palpable reproducible pinpoint left-sided chest tenderness. Abd: Soft, non tender, non distended. Normal bowel sounds Skin: No petechiae or rashes Back: Mild midline upper lumbar tenderness without step-offs or deformities. Patient in a back brace. No CVA tenderness Ext: No cyanosis, or edema Neur: Awake and alert, oriented 4. Cranial nerves intact. No facial droop. Normal strength, sensation and coordination. Psych: Normal Mood and Affect Result Diagram: 03/08/17 0837 03/08/17 0837 Results 24 hrs Laboratory Tests Test 03/08/17 08:37 White Blood Count 4.610^3/ul Red Blood Count 4.5710^6/ul Hemoglobin 13.1g/dl Hematocrit 38.5% Mean Corpuscular Volume 84.2fl Mean Corpuscular Hemoglobin 28.7pg Mean Corpuscular Hemoglobin Concent 34.0g/dl Red Cell Distribution Width 13.0% Platelet Count 77143^3/UL Mean Platelet Volume 9.4fl Neutrophils % 50.1% Lymphocytes % 36.1% Monocytes % 9.0% Eosinophils % 4.4% Basophils % 0.2% Nucleated Red Blood Cells % 0.0/100WBC Neutrophils # 2.310^3/ul Lymphocytes # 1.710^3/ul Monocytes # 0.410^3/ul Eosinophils # 0.210^3/ul Basophils # 0.010^3/ul Nucleated Red Blood Cells # 0.010^3/ul Sodium Level 141mmol/L Potassium Level 3.9mmol/L Chloride Level 105mmol/L Carbon Dioxide Level 29mmol/L Anion Gap 11 Blood Urea Nitrogen 25mg/dl Creatinine 0.74mg/dl Glucose Level 100mg/dl Calcium Level 9.7mg/dl Troponin I < 0.012ng/ml Current Medications Medications (Trade) Dose Ordered Sig/Emma Route PRN Reason Start Time Stop Time Status Last Admin Dose Admin Ketorolac Tromethamine (Toradol) 15 mg ONCE STAT IV 03/08/17 11:52 03/08/17 11:54 DC Aspirin (Aspirin) 324 mg ONCE ONCE PO 03/08/17 12:00 03/08/17 12:01 DC 03/08/17 12:01 Acetaminophen (Tylenol Tab) 650 mg ONCE ONCE PO 03/08/17 12:00 03/08/17 12:01 DC 03/08/17 12:01 Procedures/MDM MDM The patient's presentation warrants further investigation. The patient presents with chest pain and warrants a cardiac workup. LABS The patient's blood work was obtained and reviewed. The patient's CBC shows no leukocytosis and no left shift. The patient is afebrile and does not appear systemically ill. I do not suspect a systemic infection. The patient is not anemic today. The patient's platelet count is unremarkable. The patient's CMP shows no signs of metabolic or electrolyte emergencies. The patient's BUN is mildly elevated, which could be a component of dehydration. The patient has unremarkable renal and hepatic function testing. EKG EKG read by me: Rate/Rhythm: Regular rate and rhythm at a rate of 73 per minute Intervals: Normal [place]: Left shifted Impression: Nonspecific repolarization abnormality without evidence of acute ischemia or arrhythmia. The patient has nonspecific repolarization abnormality in her previous EKG as well. IMAGING CXR FINDINGS: The heart and mediastinum are within normal limits. The lungs are clear. There is no pleural effusion or pneumothorax. IMPRESSION: No acute disease. Electronically viewed and signed by .Jamil Mcbride MD, MD on 03/08/2017 08: 49 TREATMENT/DISPOSITION The patient's heart score at 3 for age, history of hypertension and nonspecific repolarization changes. The patient's chest pain is reproducible and palpable and pinpoint. Patient also describes the pain as sharp, intermittent and only lasting a few seconds at a time. I have decreased suspicion for a cardiac etiology. The patient's troponin is negative. The patient does require an outpatient workup, which may include an outpatient stress test. However, I do not feel that the patient requires inpatient admission at this time. At this time, I feel that the patient stable for discharge. The patient will need follow-up with his primary care physician in 2-3 days. The patient will be given strict precautions with which to return to the emergency department. The patient's blood pressure was elevated at greater than 120/80 while in the emergency department. The patient was otherwise stable with no evidence of hypertensive urgency or emergency or end organ damage. The patient does not require admission for blood pressure control. I have discussed with the patient the risks of hypertension. I have advised the patient to follow up with the primary care physician for outpatient monitoring and treatment for hypertension in 2-3 days. I have instructed the patient to return to the ER for any new or worsening symptoms including chest pain, shortness of breath, headache, blurred vision, confusion, nausea, vomiting or LOC. Disclaimer: Inadvertent spelling and grammatical errors are likely due to EHR/ dictation software use and do not reflect on the overall quality of patient care. Note that the electronic time recorded on this note does not necessarily reflect the actual time of the patient encounter. Departure Diagnosis: Primary Impression: Chest pain Chest pain type: unspecified Qualified Code: R07.9 - Chest pain, unspecified type Condition: REY Arriola MD Mar 08, 2017 08:25
--- NOTE | 2017-03-08 08:49 | RADRPT ---
PROCEDURE: XR Chest. CLINICAL INDICATION: chest pain TECHNIQUE: Single frontal view of the chest was obtained COMPARISON: 12/11/16 FINDINGS: The heart and mediastinum are within normal limits. The lungs are clear. There is no pleural effusion or pneumothorax. RPTAT: AA IMPRESSION: No acute disease. .Jamil Mcbride MD, MD Date Time Electronically viewed and signed by .Jamil Mcbride MD, on 03/08/2017 08:49 .S/
[2017-03-08] MEDS ORDERED: HYDR-906 PO (09:02)
[2017-03-08 09:21] LABS: BASOPHILS % 0.2 % (0.0-2.0); EOSINOPHILS # 0.2 10^3/ul (0.0-0.5); EOSINOPHILS % 4.4 % (0.0-7.0); HEMATOCRIT 38.5 % (37.0-47.0); HEMOGLOBIN 13.1 g/dl (12.0-16.0); LYMPHOCYTES # 1.7 10^3/ul (0.8-2.9); LYMPHOCYTES % 36.1 % (15.0-51.0); MEAN CORPUSCULAR HEMOGLOBIN 28.7 pg (29.0-33.0); MEAN CORPUSCULAR VOLUME 84.2 fl (82.0-101.0); MEAN PLATELET VOLUME 9.4 fl (7.4-10.4); MONOCYTE # 0.4 10^3/ul (0.3-0.9); NEUTROPHIL # 2.3 10^3/ul (1.6-7.5); NEUTROPHILS % 50.1 % (39.0-77.0); PLATELET COUNT 304 10^3/UL (140-415); RED BLOOD COUNT 4.57 10^6/ul (4.20-5.40); WHITE BLOOD COUNT 4.6 10^3/ul (4.8-10.8)
[2017-03-08 09:43] LABS: ANION GAP 11 (8-16); BLOOD UREA NITROGEN 25 mg/dl (7-20); CALCIUM 9.7 mg/dl (8.4-10.2); CARBON DIOXIDE 29 mmol/L (21-31); CHLORIDE 105 mmol/L (97-110); CREATININE 0.74 mg/dl (0.44-1.00); GLUCOSE 100 mg/dl (70-220); POTASSIUM 3.9 mmol/L (3.5-5.1); SODIUM 141 mmol/L (135-144)
[2017-03-08 09:57] LABS: TROPONIN-I < 0.012 ng/ml (0.00-0.12)
[2017-03-08 11:30] VITALS: BP 154/75; PULSE 76; RESP 18
[2017-03-08] MEDS ORDERED: KETOROLAC 15 MG INJ IV STA (11:52)
[2017-03-08] MEDS ORDERED: ACETAMINOPHEN 325 MG TAB PO ONE (12:00)
[2017-03-08] MEDS ORDERED: ASPIRIN 81 MG TAB PO ONE (12:00)
== END 2017-03-08 12:41 | disposition home or self-care (01) ==
LOC: E/R 08:06
DX: R07.9 Chest pain, unspecified (principal); I10 Essential (primary) hypertension; Z79.82 Long term (current) use of aspirin
CPT/HCPCS: 36415; 71010; 80048; 84484; 85025; 93005; Z7502; Z7610

== ENCOUNTER 2017-05-30 11:25 | Day surgery (SDC) | END 2017-05-30 16:42 | disposition home or self-care (01) ==

== ENCOUNTER 2018-06-06 17:47 | Emergency (ER) | payer MEDICAID, OTHER ==
[~2018-06-06] VITALS: Wt 62.3 kg
[~2018-06-06 17:47] MED LIST changes: +ASPI-903 PO; -ASPI81TA3 PO; +COLACE; +HYDR-4011 PO; +LOSA25TA12 PO; -LOSA25TA5 PO; +MELOXICAM; +TRAMADOL
[2018-06-06] MEDS ORDERED: IBUP-1542 PO (19:50)
[2018-06-06] MEDS ORDERED: AZIT250T PO (19:50)
[2018-06-06] MEDS ORDERED: D-ME473S2 PO (19:50)
--- NOTE | 2018-06-06 19:53 | ERD ---
ER Documentation Chief Complaint Chief Complaint L facial numb started 2200 last night. chron back pain, LLE. no droop/ slur HPI 57-year-old female presents with left facial discomfort worsening over the last day. Had cough and congestion also over the last week which is worsening. She denies chest pain, shortness of breath, vomiting, weakness or deficits. She denies headache, visual changes. ROS All systems reviewed and are negative except as per history of present illness. Medications Home Meds Active Scripts Dextromethorphan Hb-Promethazine Hcl* (Promethazine DM* Syrup) 473 Ml Syrup, 5 ML PO Q6 PRN for COUGH for 5 Days, ML Prov:BOO YOON MD 06/06/18 Ibuprofen* (Motrin*) 600 Mg Tab, 600 MG PO Q6, #20 TAB Prov:BOO YOON MD 06/06/18 Azithromycin* (Zithromax*) 250 Mg Tablet, 250 MG PO .ZPACK DIRECTED, #6 TAB TAKE 500 MG (2 TABS) THE FIRST DAY THEN 250 MG (1 TAB) DAYS 2-5 Prov:BOO YOON MD 06/06/18 Reported Medications [Colace] No Conflict Check 05/30/17 [Tramadol] No Conflict Check 05/30/17 [Meloxicam] No Conflict Check 05/30/17 Hydrocodone/Acetaminophen ([place] 5-325 Tablet) 1 Each Tablet, 1 EACH PO Q12 PRN for SEVERE PAIN LEVEL 7-10, TAB 03/08/17 Losartan Potassium* (Losartan Potassium*) 25 Mg Tablet, 25 MG PO DAILY, TAB 12/11/16 Aspirin* (Aspirin* Chew) 81 Mg Tab.chew, 81 MG PO DAILY, TAB.CHEW 12/11/16 Amlodipine Besylate* (Norvasc*) 5 Mg Tablet, 5 MG PO DAILY, TAB 12/11/16 Allergies Allergies: Coded Allergies: Penicillins (Verified Allergy, Mild, RASH, 03/08/17) PMhx/Soc History of Surgery: Yes () Anesthesia Reaction: No Hx Neurological Disorder: No Hx Respiratory Disorders: No Hx Cardiac Disorders: Yes (HYPERTENSION) Hx Psychiatric Problems: No Hx Miscellaneous Medical Probl: No Hx Alcohol Use: No Hx Substance Use: No Hx Tobacco Use: No Smoking Status: Never smoker FmHx Family History: No diabetes, No coronary disease, No other Physical Exam Vitals Vital Signs Date Temp Pulse Resp B/P (MAP) Pulse Ox O2 O2 Flow FiO2 Time Delivery Rate 06/06/18 98.4 69 22 147/74 97 18:08 (98) Physical Exam Const: No acute distress Head: Atraumatic Eyes: Normal Conjunctiva. Eyes PERRLA and extraocular movements intact. ENT: Normal External Ears, Nose and Mouth. TMs normal. Postnasal drip. Mild left maxillary facial tenderness. Neck: Full range of motion. No meningismus. Resp: Clear to auscultation bilaterally. Coarse cough without rales, wheezing or retractions. Cardio: Regular rate and rhythm, no murmurs Abd: Soft, non tender, non distended. Normal bowel sounds Skin: No petechiae or rashes Back: No midline or flank tenderness Ext: No cyanosis, or edema Neur: Awake and alert. Cranial nerves II through XII grossly intact. Negative Romberg. No pronator drift. Normal gait. Psych: Normal Mood and Affect Procedures/MDM Patient presents with worsening URI symptoms over the last week with facial discomfort suggestive of possible sinusitis. Will treat empirically with Zithromax, promethazine, ibuprofen, primary care follow-up and return precautions. The patient was stable with no new complaints during the ER course. Clinically, there is no current evidence to suggest meningitis, sepsis, acute abdomen, pneumonia, stroke, acute coronary syndrome, pulmonary embolism, aortic dissection or any other emergent condition appearing to require further evaluation or hospitalization. Patient counseled regarding my diagnostic impression and care plan. Prior to discharge all questions answered. Pt agrees with treatment plan and understands strict return precautions. Pt is instructed to follow up with primary care provider within 24-48 hours. Precautionary instructions provided including instructions to return to the ER if not improving or for any worsening or changing symptoms or concerns. Departure Diagnosis: Primary Impression: URI, acute Condition: Stable Patient Instructions: Sinusitis, Abx Tx Additional Instructions: Recheck for new or worsening symptoms with primary care doctor. Cheque otro vez con hartman doctor primario en el proximo [place] or regresa para mas o nueva simptomas. BOO YOON MD Jun 06, 2018 19:53
[2018-06-06 20:17] VITALS: BP 142/68; PULSE 60; RESP 18
== END 2018-06-06 20:21 | disposition home or self-care (01) ==
LOC: FTE 17:47
DX: J06.9 Acute upper respiratory infection, unspecified (principal); I10 Essential (primary) hypertension; Z79.82 Long term (current) use of aspirin
CPT/HCPCS: 99283

== ENCOUNTER 2018-07-22 07:18 | Emergency (ER) | payer OTHER ==
[~2018-07-22] VITALS: Wt 62.9 kg
[~2018-07-22 07:18] MED LIST changes: +AZIT250T PO; +D-ME473S2 PO; +IBUP-1542 PO
--- NOTE | 2018-07-22 08:15 | ERD ---
ER Documentation Chief Complaint Chief Complaint right ear pain HPI 58-year-old female, presents the emergency department, complaining of right ear pain sore throat and sinus congestion for 3 days. The patient also reports subjective fever, cough and general malaise. Taking fewd-ryh-arobfah medication without improvement of the symptoms. ROS All systems reviewed and are negative except as per history of present illness. Medications Home Meds Active Scripts Inhaler, Assist Devices (Compact Space Chamber) 1 Each Spacer, EACH MC, #1 Prov:ELIZA GIVENS MD 07/22/18 Albuterol Sulfate* (Proair HFA*) 8.5 Gm Hfa.aer.ad, 2 PUFF INH Q4H PRN for WHEEZING AND SOB, #1 INHALER Prov:ELIZA GIVENS MD 07/22/18 Prednisone* (Prednisone*) 20 Mg Tab, 40 MG PO DAILY for 4 Days, TAB Prov:ELIZA GIVENS MD 07/22/18 Doxycycline Hyclate* (Doxycycline Hyclate*) 100 Mg Tablet.dr, 100 MG PO BID for 7 Days, TAB Prov:ELIZA GIVENS MD 07/22/18 Dextromethorphan Hb-Promethazine Hcl* (Promethazine DM* Syrup) 473 Ml Syrup, 5 ML PO Q6 PRN for COUGH for 5 Days, ML Prov:BOO YOON MD 06/06/18 Ibuprofen* (Motrin*) 600 Mg Tab, 600 MG PO Q6, #20 TAB Prov:BOO YOON MD 06/06/18 Azithromycin* (Zithromax*) 250 Mg Tablet, 250 MG PO .BRET DIRECTED, #6 TAB TAKE 500 MG (2 TABS) THE FIRST DAY THEN 250 MG (1 TAB) DAYS 2-5 Prov:BOO YOON MD 06/06/18 Reported Medications [Colace] No Conflict Check 05/30/17 [Tramadol] No Conflict Check 05/30/17 [Meloxicam] No Conflict Check 05/30/17 Hydrocodone/Acetaminophen ([place] 5-325 Tablet) 1 Each Tablet, 1 EACH PO Q12 PRN for SEVERE PAIN LEVEL 7-10, TAB 03/08/17 Losartan Potassium* (Losartan Potassium*) 25 Mg Tablet, 25 MG PO DAILY, TAB 12/11/16 Aspirin* (Aspirin* Chew) 81 Mg Tab.chew, 81 MG PO DAILY, TAB.CHEW 12/11/16 Amlodipine Besylate* (Norvasc*) 5 Mg Tablet, 5 MG PO DAILY, TAB 12/11/16 Allergies Allergies: Coded Allergies: Penicillins (Verified Allergy, Mild, RASH, 07/22/18) PMhx/Soc History of Surgery: Yes () Anesthesia Reaction: No Hx Neurological Disorder: No Hx Respiratory Disorders: No Hx Cardiac Disorders: Yes (HYPERTENSION) Hx Psychiatric Problems: No Hx Miscellaneous Medical Probl: No Hx Alcohol Use: No Hx Substance Use: No Hx Tobacco Use: No Smoking Status: Never smoker FmHx Family History: No diabetes, No coronary disease Physical Exam Vitals Vital Signs Date Temp Pulse Resp B/P (MAP) Pulse Ox O2 O2 Flow FiO2 Time Delivery Rate 07/22/18 98.0 79 18 138/65 99 07:20 (89) Physical Exam Patient alert, oriented, vital signs stable. HEENT: Normocephalic, atraumatic. EYES: PERRLA, EOMI, Sclera and conjunctiva appear normal. EARS: Right ear with significant tympanic membrane erythema, retraction and opacity with edema of the canal. Contralateral ear normal. THROAT: Erythematous oropharynx. NECK: Supple, No lymphadenopathy. Full ROM without pain or tenderness. HEART: RRR, no rubs, murmurs, clicks or gallops. LUNGS: Clear to auscultation. ABDOMEN: Soft, non-tender without masses or hepatosplenomegaly. EXTREMITIES: No edema bilaterally. BACK: Full ROM, no deformity, normal back exam NEURO: Cranial nerves grossly intact, no motor or sensory deficit Procedures/MDM Vital signs stable, differential diagnosis include but not limited to: infection bacterial/viral/fungal. Tonsillitis, eustachian dysfunction, allergies, foreign body, cholesteatoma. Less likely mastoiditis, malignant otitis, meningitis. Physical examination and clinical presentation consistent most likely with right otitis media. During the ED course the patient remained stable, no new complaints. Clinical impression discussed with father who agrees with management. The patient is stable to be treated outpatient and will be discharged home with a Rx for antibiotics and ibuprofen. Some side effects of prescribed medications (headache, rash, nausea, vomiting, diarrhea, interactions with other medications) were reviewed. The patient was instructed to follow up with the primary care provider in the next 48h. If symptoms persist, worsen or new symptoms develop, then patient should return to the ED immediately. Disclaimer: Inadvertent spelling and grammatical errors are likely due to EHR/dictation software use and do not reflect on the overall quality of patient care. Also, please note that the electronic time recorded on this note does not necessarily reflect the actual time of the patient encounter. Departure Diagnosis: Primary Impression: Right otitis media with effusion Condition: Stable Additional Instructions: Muchas sofia por [facility] para hartman servicio. Esperamos que en hartman visita a la wing de emergencia hartman problema medico haya sido solucionado y que se sienta mucho mejor. Para estar seguros que hartman mejoria sigue en proceso, le pedimos el favor de hacer eligio reinaldo de seguimiento medico con hartman doctor primario en los proximos 2-4 macedo. Lleve con usted estos documentos y las medicinas recetadas. Si angelica sintomas empeoran, NO SE ESPERE, por favor regrese a wing de emergencia INMEDIATAMENTE. En maría que usted no tenga un mdico de atencin primaria: Llame al mdico o clnica comunitaria de referencia que aparece abajo altaf las horas de consultorio para hacer eligio reinaldo para que le vean. CLINICAS: [facility] [phone] [facility] [phone] [facility] [phone] [facility] [phone] [facility] [phone] [address] [facility]. [phone] MD Jul 22, 2018 08:15
[2018-07-22] MEDS ORDERED: DOXY100T20 PO (08:46)
[2018-07-22] MEDS ORDERED: ALBU8.5H8 INH (08:46)
[2018-07-22] MEDS ORDERED: INHA-3 MC (08:46)
[2018-07-22] MEDS ORDERED: PRED20TA PO (08:46)
[2018-07-22 08:53] VITALS: BP 129/70; PULSE 72; RESP 18
== END 2018-07-22 08:54 | disposition home or self-care (01) ==
LOC: FTE 07:18
DX: H65.91 Unspecified nonsuppurative otitis media, right ear (principal); I10 Essential (primary) hypertension; Z79.82 Long term (current) use of aspirin
CPT/HCPCS: 99283

== ENCOUNTER 2018-07-25 19:47 | Emergency (ER) | payer OTHER ==
[~2018-07-25] VITALS: Ht 157.5 cm; Wt 63.7 kg
[~2018-07-25 19:47] MED LIST changes: +ALBU8.5H8 INH; +DOXY100T20 PO; +INHA-3 MC; +PRED20TA PO
[2018-07-25 19:53] VITALS: BP 119/59; PULSE 65; RESP 16; Ht 157.5 cm; Wt 63.7 kg
--- NOTE | 2018-07-25 20:34 | ERD ---
ER Documentation Chief Complaint Chief Complaint r ear pain x 10 days HPI 58-year-old female, presents to the emergency department, complaining of itching and desquamation of the right ear. She denies fever, no chills, the patient was seen here 3 days ago and is started on doxycycline, the patient refers feeling better, no pain, no fever, no chills. ROS All systems reviewed and are negative except as per history of present illness. Medications Home Meds Active Scripts Inhaler, Assist Devices (Compact Space Chamber) 1 Each Spacer, EACH MC, #1 Prov:ELIZA GIVENS MD 07/22/18 Albuterol Sulfate* (Proair HFA*) 8.5 Gm Hfa.aer.ad, 2 PUFF INH Q4H PRN for WHEEZING AND SOB, #1 INHALER Prov:ELIZA GIVENS MD 07/22/18 Prednisone* (Prednisone*) 20 Mg Tab, 40 MG PO DAILY for 4 Days, TAB Prov:ELIZA GIVENS MD 07/22/18 Doxycycline Hyclate* (Doxycycline Hyclate*) 100 Mg Tablet.dr, 100 MG PO BID for 7 Days, TAB Prov:ELIZA GIVENS MD 07/22/18 Dextromethorphan Hb-Promethazine Hcl* (Promethazine DM* Syrup) 473 Ml Syrup, 5 ML PO Q6 PRN for COUGH for 5 Days, ML Prov:BOO YOON MD 06/06/18 Ibuprofen* (Motrin*) 600 Mg Tab, 600 MG PO Q6, #20 TAB Prov:BOO YOON MD 06/06/18 Azithromycin* (Zithromax*) 250 Mg Tablet, 250 MG PO .ZPACK DIRECTED, #6 TAB TAKE 500 MG (2 TABS) THE FIRST DAY THEN 250 MG (1 TAB) DAYS 2-5 Prov:BOO YOON MD 06/06/18 Reported Medications [Colace] No Conflict Check 05/30/17 [Tramadol] No Conflict Check 05/30/17 [Meloxicam] No Conflict Check 05/30/17 Hydrocodone/Acetaminophen ([place] 5-325 Tablet) 1 Each Tablet, 1 EACH PO Q12 PRN for SEVERE PAIN LEVEL 7-10, TAB 03/08/17 Losartan Potassium* (Losartan Potassium*) 25 Mg Tablet, 25 MG PO DAILY, TAB 12/11/16 Aspirin* (Aspirin* Chew) 81 Mg Tab.chew, 81 MG PO DAILY, TAB.CHEW 12/11/16 Amlodipine Besylate* (Norvasc*) 5 Mg Tablet, 5 MG PO DAILY, TAB 12/11/16 Allergies Allergies: Coded Allergies: Penicillins (Verified Allergy, Mild, RASH, 07/22/18) PMhx/Soc History of Surgery: Yes () Anesthesia Reaction: No Hx Neurological Disorder: No Hx Respiratory Disorders: No Hx Cardiac Disorders: Yes (HYPERTENSION) Hx Psychiatric Problems: No Hx Miscellaneous Medical Probl: No Hx Alcohol Use: No Hx Substance Use: No Hx Tobacco Use: No FmHx Family History: diabetes; No coronary disease Physical Exam Vitals Vital Signs Date Temp Pulse Resp B/P (MAP) Pulse Ox O2 O2 Flow FiO2 Time Delivery Rate 07/25/18 97.7 65 16 119/59 98 19:53 (79) Physical Exam Const: No acute distress Head: Atraumatic Eyes: Normal Conjunctiva ENT: Right ear with edema and desquamation of the canal. Neck: Full range of motion. No meningismus. Resp: Clear to auscultation bilaterally Cardio: Regular rate and rhythm, no murmurs Abd: Soft, non tender, non distended. Normal bowel sounds Skin: No petechiae or rashes Back: No midline or flank tenderness Ext: No cyanosis, or edema Neur: Awake and alert Psych: Normal Mood and Affect Procedures/MDM Vital signs stable, differential diagnosis include but not limited to: infection bacterial/viral/fungal. Tonsillitis, eustachian dysfunction, allergies, foreign body, cholesteatoma. Less likely mastoiditis, malignant otitis, meningitis. Physical examination and clinical presentation consistent most likely with right otitis externa During the ED course the patient remained stable, no new complaints. Clinical impression discussed with the patient who agrees with management. The patient is stable to be treated outpatient and will be discharged home with a Rx for Cortisporin. Some side effects of prescribed medications (headache, rash, nausea, vomiting, diarrhea, interactions with other medications) were reviewed. The patient was instructed to follow up with the primary care provider in the next 48h. If symptoms persist, worsen or new symptoms develop, then patient should return to the ED immediately. Disclaimer: Inadvertent spelling and grammatical errors are likely due to EHR/dictation software use and do not reflect on the overall quality of patient care. Also, please note that the electronic time recorded on this note does not necessarily reflect the actual time of the patient encounter. Departure Diagnosis: Primary Impression: Right otitis externa Condition: Stable Patient Instructions: External Ear Infection (Adult) Additional Instructions: Muchas sofia por [facility] para hartman servicio. Esperamos que en hartman visita a la wing de emergencia hartman problema medico haya sido solucionado y que se sienta mucho mejor. Para estar seguros que hartman mejoria sigue en proceso, le pedimos el favor de hacer eligio reinaldo de seguimiento medico con hartman doctor primario en los proximos 2-4 macedo. Lleve con usted estos documentos y las medicinas recetadas. Si angelica sintomas empeoran, NO SE ESPERE, por favor regrese a wing de emergencia INMEDIATAMENTE. En maría que usted no tenga un mdico de atencin primaria: Llame al mdico o clnica comunitaria de referencia que aparece abajo altaf las horas de consultorio para hacer eligio reinaldo para que le vean. CLINICAS: [facility] [phone] [facility] [phone] [facility] [phone] [facility] [phone] [place] [phone] [facility] [phone] MD Jul 25, 2018 20:34
[2018-07-25] MEDS ORDERED: NPH10OT RIGHT EAR (20:40)
[2018-07-25] MEDS ORDERED: IBUP-1542 PO (20:40)
== END 2018-07-25 20:41 | disposition home or self-care (01) ==
LOC: E/R 19:47
DX: H60.91 Unspecified otitis externa, right ear (principal); I10 Essential (primary) hypertension; Z79.82 Long term (current) use of aspirin
CPT/HCPCS: 99283